=== PATIENT | female | born 1960 | race Caucasian/White ===

== ENCOUNTER 2023-12-21 14:56 | Inpatient (IN) | payer MEDICAID, MEDICARE ==
[~2023-12-21] VITALS: Ht 160 cm; Wt 101.8 kg
[2023-12-21] MEDS ORDERED: IOHEXOL-350 100 ML VIAL IV ONE ×2 (15:12→15:27)
[2023-12-21 15:41] LABS: BASOPHILS # (AUTO) 0.1 K/uL (0.0-0.2); BASOPHILS % (AUTO) 0.9 % (0.0-2.0); HEMATOCRIT 30 % (33-45); HEMOGLOBIN 9.2 g/dL (11.5-14.8); LYMPHOCYTES % (AUTO) 10.2 % (20.0-44.0); MEAN CORPUSCULAR HEMOGLOBIN 30 PG (26.0-33.0); MEAN CORPUSCULAR HGB CONC 31 g/dl (31.0-36.0); MEAN CORPUSCULAR VOLUME 99 fL (82-100); MONOCYTES # (AUTO) 1.2 K/uL (0.1-1.30); MONOCYTES % (AUTO) 11.5 % (2.0-12.0); NEUTROPHILS # (AUTO) 7.9 K/uL (1.8-8.9); NEUTROPHILS % (AUTO) 77.4 % (43.0-81.0); PLATELET COUNT (AUTO) 185 K/uL (150-450); RED BLOOD CELL COUNT(AUTO) 3.05 MIL/uL (4.0-5.2); RED CELL DISTRIBUTION WIDTH 19.9 % (11.5-15.0); WHITE BLOOD COUNT (AUTO) 10.1 K/uL (4.3-11.0)
[2023-12-21 15:54] LABS: CALCIUM, SERUM 8.6 mg/dL (8.5-10.1); CARBON DIOXIDE 33 mmol/L (21-32); CHLORIDE 98 mmol/L (98-107); GLUCOSE 96 mg/dL (74-106); POTASSIUM 5.6 mmol/L (3.5-5.1); SODIUM SERUM 136 mmol/L (136-145)
[2023-12-21 15:56] LABS: UREA NITROGEN, BLOOD 84 mg/dL (7-18)
[2023-12-21 16:01] LABS: ALANINE AMINOTRANSFERASE 930 U/L (12-78); ALBUMIN 2.6 g/dL (3.4-5.0); ALKALINE PHOSPHATASE 111 U/L (46-116); BILIRUBIN,DIRECT 0.4 mg/dL (0.0-0.2); BILIRUBIN,TOTAL 0.7 mg/dL (0.2-1.0); TOTAL PROTEIN, SERUM 7.5 g/dL (6.4-8.2)
[2023-12-21 16:04] LABS: ALCOHOL, BLOOD < 3 mg/dL (0-10)
[2023-12-21 16:10] LABS: NT-PRO BNP > 25000 pg/mL (0-125)
[2023-12-21 16:22] LABS: INR 1.36 (0.91-1.10); PARTIAL THROMBOPLASTIN TIME 21.6 SEC (24.3-34.3); PROTHROMBIN TIME 13.8 SECS (9.2-11.1)
[2023-12-21 16:25] LABS: ASPARTATE AMINOTRANSFERASE 2601 U/L (15-37)
[2023-12-21] MEDS ORDERED: Calcium Gluconate 1GM/10ML 4.65 MEQ in IV NS 0.9% 100 ML IV ONE (16:30)
[2023-12-21] MEDS ORDERED: Calcium Gluconate 0.465 MEQ/ML VIAL IV ONE (16:33)
[2023-12-21] MEDS ORDERED: SODIUM BICARBONATE SYR 50 MEQ/50 ML DISP.SYRIN ONE (16:34)
[2023-12-21] MEDS ORDERED: ASPIRIN 300 MG/SUPP.RECT RC ONE (16:34)
[2023-12-21] MEDS ORDERED: FUROSEMIDE 20 MG/2 ML VIAL ONE (16:35)
[2023-12-21] MEDS: SODIUM BICARBONATE SYR 50 MEQ/50 ML DISP.SYRIN IV ONE (16:55)
[2023-12-21] MEDS: FUROSEMIDE 40 MG/4 ML VIAL IV ONE (16:55)
[2023-12-21] MEDS: IV NS 0.9% 1,000 ML BAG IV ONE (16:55)
[2023-12-21] MEDS: Calcium Gluconate 0.465 MEQ/ML VIAL IV ONE (17:00)
[2023-12-21] MEDS ORDERED: ALBUTEROL FS 2.5 MG/3 ML VIAL.NEB ONE (17:00)
[2023-12-21] MEDS: ASPIRIN 300 MG/SUPP.RECT RC ONE (17:07)
[2023-12-21 17:08] LABS: THYROID STIMULATING HORMONE 4.832 uIU/mL (0.358-3.74)
[2023-12-21 17:09] VITALS: O2SAT 96
[2023-12-21] MEDS: ALBUTEROL FS 2.5 MG/3 ML VIAL.NEB NEB ONE (17:09)
[2023-12-21 17:28] LABS: APPEARANCE,URINE Clear (CLEAR); BILIRUBIN,URINE SMALL (NEGATIVE); BLOOD, URINE Trace-intact Ery/uL (NEGATIVE); COLOR,URINE YELLOW (YELLOW); KETONES,URINE Trace mg/dL (NEGATIVE); LEUKOCYTE ESTERASE ,URINE Negative (NEGATIVE); NITRITE, URINE Negative (NEGATIVE); PH,URINE 5.5 (5.0-8.0); PROTEIN,URINE 100 mg/dl (NEGATIVE); UGLUCOSE Negative (NEGATIVE)
[2023-12-21 17:35] LABS: AMPHETAMINE, URINE NEGATIVE (NEGATIVE); BARBITURATE, URINE NEGATIVE (NEGATIVE); BENZODIAZEPINE, URINE NEGATIVE (NEGATIVE); CANNABINOID, URINE NEGATIVE (NEGATIVE); COCCAINE, URINE NEGATIVE (NEGATIVE); OPIATE, URINE NEGATIVE (NEGATIVE); PHENCYCLIDINE SCREEN,URINE NEGATIVE (NEGATIVE)
[2023-12-21 17:55] LABS: ADD URINE CULTURE NO; BACTERIA,URINE 1+ /HPF (None Seen); MUCUS,URINE Moderate /LPF (None Seen); WBC,URINE 0-2 /HPF (0-3)
[2023-12-21 18:09] VITALS: O2SAT 98
[2023-12-21 20:30] VITALS: O2SAT 98
[2023-12-21] MEDS ORDERED: ONDANSETRON HCL/PF 4 MG/2 ML VIAL IVP PRN (22:00)
[2023-12-21 22:11] LABS: SERUM AMMONIA 62 umol/L (11-32)
[2023-12-21 22:30] LABS: CALCIUM, SERUM 8.9 mg/dL (8.5-10.1); POTASSIUM 5.6 mmol/L (3.5-5.1)
[2023-12-21 22:45] LABS: ACETAMINOPHEN <10 ug/ml (10-30)
[2023-12-21 22:54] LABS: ALANINE AMINOTRANSFERASE 970 U/L (12-78); ALBUMIN 2.2 g/dL (3.4-5.0); ALKALINE PHOSPHATASE 117 U/L (46-116); ASPARTATE AMINOTRANSFERASE > 1000 U/L (15-37); BILIRUBIN,DIRECT 0.3 mg/dL (0.0-0.2); BILIRUBIN,TOTAL 0.5 mg/dL (0.2-1.0); TOTAL PROTEIN, SERUM 7.1 g/dL (6.4-8.2)
[2023-12-21] MEDS: ENOXAPARIN SODIUM 100 MG/ML DISP.SYRIN SQ ONE (23:28)
[2023-12-21] MEDS: LACTULOSE 10 G/15 ML UDC (PYXIS) PO SCH (23:31)
[2023-12-22] VITALS (7 sets, daily range): BP systolic 101–133; BP diastolic 47–74; TEMP 97.1–98.1; O2SAT 96–99
[2023-12-22] MEDS ORDERED: CEFTRIAXONE 1GM BAG (ER ONLY) 50 ML IV ONE (05:11)
[2023-12-22] MEDS: CEFTRIAXONE 1 G in IV D5W 50 ML IV ONE (05:13)
[2023-12-22 06:56] LABS: BASOPHILS % (AUTO) 0.4 % (0.0-2.0); EOSINOPHILS % (AUTO) 0.1 % (0.0-6.0); HEMATOCRIT 28 % (33-45); HEMOGLOBIN 8.9 g/dL (11.5-14.8); LYMPHOCYTES # (AUTO) 1.4 K/uL (0.8-4.8); LYMPHOCYTES % (AUTO) 15.8 % (20.0-44.0); MEAN CORPUSCULAR HEMOGLOBIN 31 PG (26.0-33.0); MEAN CORPUSCULAR HGB CONC 32 g/dl (31.0-36.0); MEAN CORPUSCULAR VOLUME 98 fL (82-100); MONOCYTES # (AUTO) 1.1 K/uL (0.1-1.30); NEUTROPHILS # (AUTO) 6.4 K/uL (1.8-8.9); NEUTROPHILS % (AUTO) 71.7 % (43.0-81.0); PLATELET COUNT (AUTO) 156 K/uL (150-450); RED BLOOD CELL COUNT(AUTO) 2.87 MIL/uL (4.0-5.2); RED CELL DISTRIBUTION WIDTH 20.3 % (11.5-15.0)
[2023-12-22] MEDS ORDERED: FURO40TA5 PO (09:08)
[2023-12-22] MEDS ORDERED: ARIP5TAB10 PO (09:08)
[2023-12-22] MEDS ORDERED: METF-440 PO (09:08)
[2023-12-22] MEDS ORDERED: TRAM50TA2 PO (09:08)
[2023-12-22] MEDS ORDERED: DIVA-78 PO (09:08)
[2023-12-22] MEDS ORDERED: ALBU18HF2 IH (09:08)
[2023-12-22] MEDS ORDERED: ATOR80TA PO (09:08)
[2023-12-22 09:24] LABS: SERUM AMMONIA 87 umol/L (11-32)
[2023-12-22 09:31] LABS: ALANINE AMINOTRANSFERASE 1206 U/L (12-78); ALBUMIN 2.2 g/dL (3.4-5.0); ALKALINE PHOSPHATASE 113 U/L (46-116); ASPARTATE AMINOTRANSFERASE > 1000 U/L (15-37); BILIRUBIN,DIRECT 0.3 mg/dL (0.0-0.2); BILIRUBIN,TOTAL 0.5 mg/dL (0.2-1.0); CALCIUM, SERUM 8.5 mg/dL (8.5-10.1); CARBON DIOXIDE 34 mmol/L (21-32); CHLORIDE 100 mmol/L (98-107); CREATININE 3.1 mg/dL (0.6-1.3); GLUCOSE 87 mg/dL (74-106); MAGNESIUM 2.5 mg/dL (1.8-2.4); POTASSIUM 5.4 mmol/L (3.5-5.1); SODIUM SERUM 140 mmol/L (136-145)
[2023-12-22 09:41] LABS: UREA NITROGEN, BLOOD 88 mg/dL (7-18)
[2023-12-22 09:59] LABS: CHOLESTEROL 101 mg/dL (<200); HDL CHOLESTEROL 31 mg/dL (40-60); LDL 41 mg/dL (0-99); TRIGLYCERIDES 133 mg/dL (30-150)
[2023-12-22] MEDS: SODIUM POLYSTYRENE SULF. PWD 15 GM UDC PO ONE (12:18)
[2023-12-22] MEDS: IV NS 0.9% 1,000 ML IV PRN (15:34)
[2023-12-22 16:59] LABS: APPEARANCE,URINE CLEAR (CLEAR); BILIRUBIN,URINE NEGATIVE (NEGATIVE); BLOOD, URINE 3+ Ery/uL (NEGATIVE); COLOR,URINE YELLOW (YELLOW); KETONES,URINE TRACE mg/dL (NEGATIVE); LEUKOCYTE ESTERASE ,URINE NEGATIVE (NEGATIVE); NITRITE, URINE NEGATIVE (NEGATIVE); PROTEIN,URINE 2+ mg/dl (NEGATIVE); UGLUCOSE NEGATIVE (NEGATIVE)
[2023-12-22 17:12] LABS: ADD URINE CULTURE NO; BACTERIA,URINE None seen /HPF (None Seen); MUCUS,URINE Few /LPF (None Seen); RBC,URINE 21-50 /HPF (0-2); SQUAMOUS EPITHELIAL CELL,UR None Seen /HPF (None Seen); WBC,URINE NONE SEEN /HPF (0-3); YEAST,URINE Rare /HPF (None Seen)
[2023-12-22 17:20] LABS: CREATININE, URINE 63.2 MG/DL (30.0-125.0); URINE TOTAL PROTEIN 132.3 mg/dL (0-11.9)
[2023-12-22 17:45] LABS: EOSINOPHIL,URINE None Seen
[2023-12-22] MEDS: ENOXAPARIN SODIUM 100 MG/ML DISP.SYRIN SQ SCH (20:55)
[2023-12-22] MEDS: ACETAMINOPHEN 325 MG TABLET PO PRN (20:56)
[2023-12-23] VITALS: BP 109/96; TEMP 99.5; O2SAT 95
[2023-12-23 04:00] VITALS: BP 134/71; TEMP 99; O2SAT 98
[2023-12-23 07:06] LABS: BASOPHILS % (AUTO) 0.3 % (0.0-2.0); EOSINOPHILS % (AUTO) 0.3 % (0.0-6.0); HEMATOCRIT 25 % (33-45); LYMPHOCYTES # (AUTO) 1.6 K/uL (0.8-4.8); LYMPHOCYTES % (AUTO) 18.4 % (20.0-44.0); MEAN CORPUSCULAR HEMOGLOBIN 31 PG (26.0-33.0); MEAN CORPUSCULAR HGB CONC 32 g/dl (31.0-36.0); MEAN CORPUSCULAR VOLUME 98 fL (82-100); MONOCYTES # (AUTO) 1.1 K/uL (0.1-1.30); PLATELET COUNT (AUTO) 139 K/uL (150-450); RED BLOOD CELL COUNT(AUTO) 2.59 MIL/uL (4.0-5.2); RED CELL DISTRIBUTION WIDTH 19.9 % (11.5-15.0); WHITE BLOOD COUNT (AUTO) 8.8 K/uL (4.3-11.0)
[2023-12-23 07:54] LABS: ALANINE AMINOTRANSFERASE 1474 U/L (12-78); ALKALINE PHOSPHATASE 109 U/L (46-116); ASPARTATE AMINOTRANSFERASE > 1000 U/L (15-37); BILIRUBIN,TOTAL 0.4 mg/dL (0.2-1.0); CARBON DIOXIDE 34 mmol/L (21-32); CHLORIDE 103 mmol/L (98-107); CREATININE 3.1 mg/dL (0.6-1.3); GLUCOSE 119 mg/dL (74-106); MAGNESIUM 2.3 mg/dL (1.8-2.4); PHOSPHORUS 5.3 mg/dL (2.5-4.9); POTASSIUM 3.4 mmol/L (3.5-5.1); SODIUM SERUM 143 mmol/L (136-145); TOTAL PROTEIN, SERUM 6.5 g/dL (6.4-8.2)
[2023-12-23 08:00] VITALS: BP 113/63; TEMP 98.6; O2SAT 98
[2023-12-23 08:03] LABS: CREATINE KINASE, TOTAL 219 U/L (26-192)
[2023-12-23 08:05] LABS: UREA NITROGEN, BLOOD 84 mg/dL (7-18)
[2023-12-23 08:08] LABS: COMPLEMENT C3, SERUM 110 mg/dL (82-167); COMPLEMENT C4, SERUM 36 mg/dL (12-38)
[2023-12-23] MEDS: CEFTRIAXONE 1 G in IV D5W 50 ML IV SCH (08:12)
[2023-12-23 11:12] LABS: *ANA ANTI-CENTROMERE B AB <0.2 AI (0.0-0.9); *ANA ANTI-DNA(DS) AB, QN 1 IU/mL (0-9); *ANA ANTI-JO-1 <0.2 AI (0.0-0.9); *ANA ANTICHROMATIN ANTIBODY <0.2 AI (0.0-0.9); *ANA RNP ANTIBODIES <0.2 AI (0.0-0.9); *ANA SJOGREN'S ANTI-SS-A <0.2 AI (0.0-0.9); *ANA SJOGREN'S ANTI-SS-B <0.2 AI (0.0-0.9); *ANAANTI-SCLERODERMA-70 AB <0.2 AI (0.0-0.9); *ANASMITH AB <0.2 AI (0.0-0.9)
[2023-12-23] MEDS ORDERED: TRAMADOL HCL 50 MG TABLET PO PRN (11:30)
[2023-12-23 12:00] VITALS: BP 114/70; TEMP 98.2; O2SAT 98
[2023-12-23] MEDS ORDERED: ALBUTEROL FS 2.5 MG/0.5 ML VIAL.NEB IH PRN (12:00)
[2023-12-23] MEDS ORDERED: ALBUTEROL FS 2.5 MG/0.5 ML VIAL.NEB NEB PRN (12:00)
[2023-12-23 16:00] VITALS: BP 130/74; TEMP 98.3; O2SAT 98
[2023-12-23] MEDS: PROSOURCE / PROSTAT (PYXIS) 30 ML UDC PO SCH (16:41)
[2023-12-23 20:00] VITALS: BP 136/83; TEMP 97.3; O2SAT 97
[2023-12-23] MEDS: D5W IV ONE (20:22)
[2023-12-23] MEDS: ACETYLCYSTEINE IV ONE (20:22)
[2023-12-23] MEDS: DIVALPROEX SODIUM 500 MG TABLET.DR PO SCH (21:09)
[2023-12-23] MEDS: D5W IV SCH (21:20)
[2023-12-23] MEDS: ACETYLCYSTEINE IV SCH (21:20)
[2023-12-23] MEDS: ARIPIPRAZOLE 5 MG TABLET PO SCH (21:25)
[2023-12-24] VITALS (7 sets, daily range): BP systolic 125–138; BP diastolic 62–81; TEMP 96.7–99; O2SAT 97–99
[2023-12-24 06:07] LABS: HEPATITIS B SURFACE AB Reactive (.)
[2023-12-24 06:07] LABS: HBSAG SCREEN Negative (Negative); HEPATITIS A AB, IgM Negative (Negative); HEPATITIS B CORE AB, IgM Negative (Negative)
[2023-12-24 09:07] LABS: PTH, INTACT 394 pg/mL (15-65)
[2023-12-24] MEDS: HEPARIN SODIUM, PORCINE 5000 UNITS/1 ML VIAL SQ SCH (10:02)
[2023-12-24 11:54] LABS: CALCIUM, SERUM 8.2 mg/dL (8.5-10.1); CARBON DIOXIDE 30 mmol/L (21-32); CHLORIDE 96 mmol/L (98-107); CREATININE 2.8 mg/dL (0.6-1.3); GLUCOSE 136 mg/dL (74-106); SODIUM SERUM 144 mmol/L (136-145); UREA NITROGEN, BLOOD 77 mg/dL (7-18)
[2023-12-24 12:03] LABS: ALANINE AMINOTRANSFERASE 1108 U/L (12-78); ALBUMIN 1.7 g/dL (3.4-5.0); ALKALINE PHOSPHATASE 88 U/L (46-116); ASPARTATE AMINOTRANSFERASE > 1000 U/L (15-37); BILIRUBIN,TOTAL 0.4 mg/dL (0.2-1.0); TOTAL PROTEIN, SERUM 6.1 g/dL (6.4-8.2)
[2023-12-24] MEDS ORDERED: ACETYLCYSTEINE IV SCH ×2 (16:00→17:00)
[2023-12-24] MEDS ORDERED: D5W IV SCH ×2 (16:00→17:00)
[2023-12-24 16:42] LABS: ALBUMIN 1.7 g/dL (3.4-5.0); BILIRUBIN,DIRECT 0.2 mg/dL (0.0-0.2); BILIRUBIN,TOTAL 0.4 mg/dL (0.2-1.0); TOTAL PROTEIN, SERUM 6.1 g/dL (6.4-8.2)
[2023-12-24] MEDS: ACETYLCYSTEINE IV SCH (17:38)
[2023-12-24] MEDS: D5W IV SCH (17:38)
[2023-12-24] MEDS: POTASSIUM CHLORIDE 20 MEQ TAB.PRT.SR PO ONE (21:13)
[2023-12-25] VITALS (7 sets, daily range): BP systolic 102–146; BP diastolic 66–83; TEMP 98.2–98.5; O2SAT 96–100
[2023-12-25 07:06] LABS: ALPHA-1-ANTITRYPSIN 198 mg/dL (101-187); IMMUNOGLOBULIN G, SERUM 1709 mg/dL (586-1602); IMMUNOGLOBULIN M, SERUM 40 mg/dL (26-217)
[2023-12-25 08:07] LABS: *ANA ANTI-CENTROMERE B AB <0.2 AI (0.0-0.9); *ANA ANTI-DNA(DS) AB, QN 1 IU/mL (0-9); *ANA ANTI-JO-1 <0.2 AI (0.0-0.9); *ANA ANTICHROMATIN ANTIBODY <0.2 AI (0.0-0.9); *ANA RNP ANTIBODIES <0.2 AI (0.0-0.9); *ANA SJOGREN'S ANTI-SS-A <0.2 AI (0.0-0.9); *ANA SJOGREN'S ANTI-SS-B <0.2 AI (0.0-0.9); *ANAANTI-SCLERODERMA-70 AB <0.2 AI (0.0-0.9); *ANASMITH AB <0.2 AI (0.0-0.9)
[2023-12-25 08:49] LABS: BASOPHILS % (AUTO) 0.3 % (0.0-2.0); EOSINOPHILS # (AUTO) 0.1 K/uL (0.0-0.7); EOSINOPHILS % (AUTO) 1.4 % (0.0-6.0); HEMATOCRIT 28 % (33-45); HEMOGLOBIN 8.7 g/dL (11.5-14.8); LYMPHOCYTES # (AUTO) 2.2 K/uL (0.8-4.8); LYMPHOCYTES % (AUTO) 23.4 % (20.0-44.0); MEAN CORPUSCULAR HEMOGLOBIN 31 PG (26.0-33.0); MEAN CORPUSCULAR HGB CONC 31 g/dl (31.0-36.0); MEAN CORPUSCULAR VOLUME 99 fL (82-100); MONOCYTES # (AUTO) 1.2 K/uL (0.1-1.30); MONOCYTES % (AUTO) 12.5 % (2.0-12.0); NEUTROPHILS # (AUTO) 5.9 K/uL (1.8-8.9); NEUTROPHILS % (AUTO) 62.4 % (43.0-81.0); PLATELET COUNT (AUTO) 160 K/uL (150-450); RED CELL DISTRIBUTION WIDTH 20.2 % (11.5-15.0); WHITE BLOOD COUNT (AUTO) 9.4 K/uL (4.3-11.0)
[2023-12-25] MEDS ORDERED: POTASSIUM CHLORIDE 20 MEQ TAB.PRT.SR PO SCH (09:00)
[2023-12-25 09:04] LABS: CALCIUM, SERUM 8.8 mg/dL (8.5-10.1); CREATININE 2.5 mg/dL (0.6-1.3); POTASSIUM 3.3 mmol/L (3.5-5.1)
[2023-12-25] MEDS: POTASSIUM CHLORIDE 20 MEQ POWDER PACKET GT SCH (09:11)
[2023-12-25] MEDS: DIVALPROEX SODIUM 125 MG CAP.SPRINK PO SCH (10:10)
[2023-12-25 12:06] LABS: ALBUMIN 1.6 g/dL (3.4-5.0); BILIRUBIN,DIRECT 0.2 mg/dL (0.0-0.2); BILIRUBIN,TOTAL 0.4 mg/dL (0.2-1.0); TOTAL PROTEIN, SERUM 6.2 g/dL (6.4-8.2)
[2023-12-25] MEDS: ASPIRIN EC 81 MG TABLET.DR PO SCH (17:07)
[2023-12-26] VITALS (9 sets, daily range): BP systolic 116–149; BP diastolic 60–87; TEMP 97.4–98.6; O2SAT 96–100
[2023-12-26 09:48] LABS: ALBUMIN 1.7 g/dL (3.4-5.0); BILIRUBIN,TOTAL 0.3 mg/dL (0.2-1.0); CALCIUM, SERUM 9.3 mg/dL (8.5-10.1); CREATININE 2.3 mg/dL (0.6-1.3); MAGNESIUM 1.8 mg/dL (1.8-2.4); PHOSPHORUS 4.3 mg/dL (2.5-4.9); POTASSIUM 3.9 mmol/L (3.5-5.1); TOTAL PROTEIN, SERUM 6.7 g/dL (6.4-8.2)
[2023-12-26 13:40] LABS: BASOPHILS % (AUTO) 0.4 % (0.0-2.0); EOSINOPHILS % (AUTO) 1.3 % (0.0-6.0); HEMATOCRIT 28 % (33-45); HEMOGLOBIN 8.5 g/dL (11.5-14.8); LYMPHOCYTES % (AUTO) 22.6 % (20.0-44.0); MEAN CORPUSCULAR HEMOGLOBIN 31 PG (26.0-33.0); MEAN CORPUSCULAR HGB CONC 31 g/dl (31.0-36.0); MEAN CORPUSCULAR VOLUME 101 fL (82-100); MONOCYTES % (AUTO) 12.4 % (2.0-12.0); NEUTROPHILS % (AUTO) 63.3 % (43.0-81.0); PLATELET COUNT (AUTO) 168 K/uL (150-450); RED BLOOD CELL COUNT(AUTO) 2.73 MIL/uL (4.0-5.2); RED CELL DISTRIBUTION WIDTH 19.9 % (11.5-15.0); WHITE BLOOD COUNT (AUTO) 9.2 K/uL (4.3-11.0)
[2023-12-26 13:41] LABS: EOSINOPHILS # (AUTO) 0.1 K/uL (0.0-0.7); LYMPHOCYTES # (AUTO) 2.1 K/uL (0.8-4.8); MONOCYTES # (AUTO) 1.1 K/uL (0.1-1.30); NEUTROPHILS # (AUTO) 5.8 K/uL (1.8-8.9)
[2023-12-26 14:30] LABS: NEUTROPHILS % (MANUAL) 66 (42-76)
[2023-12-26 14:31] LABS: ANISOCYTOSIS 1+; EOSINOPHILS % (MANUAL) 1 % (0-4); LYMPHOCYTES % (MANUAL) 20 % (16-48); MONOCYTES % (MANUAL) 10 % (0-11.0); PLATELET ESTIMATE ADEQUATE; REACTIVE LYMPHOCYTES 2 % (0-0); SMUDGE CELLS 1+
[2023-12-26 15:58] LABS: ALBUMIN 1.5 g/dL (3.4-5.0); BILIRUBIN,DIRECT 0.1 mg/dL (0.0-0.2); BILIRUBIN,TOTAL 0.3 mg/dL (0.2-1.0); TOTAL PROTEIN, SERUM 5.7 g/dL (6.4-8.2)
[2023-12-27] VITALS: BP 135/71; TEMP 98; O2SAT 100
[2023-12-27 04:00] VITALS: BP 120/65; TEMP 98.6; O2SAT 100
[2023-12-27 08:00] VITALS: BP 115/60; TEMP 98.3; O2SAT 98
[2023-12-27 12:00] VITALS: BP 136/62; TEMP 98; O2SAT 97
[2023-12-27 16:00] VITALS: BP 138/61; TEMP 98.6; O2SAT 95
[2023-12-27 20:00] VITALS: BP 140/56; TEMP 97.5; O2SAT 94
[2023-12-28] VITALS (7 sets, daily range): BP systolic 100–127; BP diastolic 59–68; TEMP 96.8–98.4; O2SAT 93–97
[2023-12-28 10:49] LABS: BASOPHILS % (AUTO) 0.4 % (0.0-2.0); EOSINOPHILS # (AUTO) 0.2 K/uL (0.0-0.7); EOSINOPHILS % (AUTO) 2.5 % (0.0-6.0); HEMATOCRIT 26 % (33-45); HEMOGLOBIN 7.6 g/dL (11.5-14.8); LYMPHOCYTES # (AUTO) 1.8 K/uL (0.8-4.8); LYMPHOCYTES % (AUTO) 20.5 % (20.0-44.0); MEAN CORPUSCULAR HEMOGLOBIN 31 PG (26.0-33.0); MEAN CORPUSCULAR HGB CONC 30 g/dl (31.0-36.0); MEAN CORPUSCULAR VOLUME 105 fL (82-100); MONOCYTES % (AUTO) 11.6 % (2.0-12.0); NEUTROPHILS # (AUTO) 5.7 K/uL (1.8-8.9); PLATELET COUNT (AUTO) 180 K/uL (150-450); RED BLOOD CELL COUNT(AUTO) 2.47 MIL/uL (4.0-5.2); RED CELL DISTRIBUTION WIDTH 20.7 % (11.5-15.0); WHITE BLOOD COUNT (AUTO) 8.9 K/uL (4.3-11.0)
[2023-12-28 11:02] LABS: ALBUMIN 1.7 g/dL (3.4-5.0); BILIRUBIN,TOTAL 0.2 mg/dL (0.2-1.0); CALCIUM, SERUM 8.9 mg/dL (8.5-10.1); CREATININE 2.2 mg/dL (0.6-1.3); MAGNESIUM 1.9 mg/dL (1.8-2.4); PHOSPHORUS 4.5 mg/dL (2.5-4.9); POTASSIUM 3.5 mmol/L (3.5-5.1); TOTAL PROTEIN, SERUM 6.1 g/dL (6.4-8.2)
[2023-12-29 00:35] VITALS: O2SAT 96
[2023-12-29 05:18] VITALS: BP 117/70; TEMP 97.7; O2SAT 92
[2023-12-29 08:00] VITALS: BP 120/68; TEMP 98.4; O2SAT 92
[2023-12-29] MEDS: Z GUARD REMEDY 4 OZ OINT TP SCH (09:33)
[2023-12-29] MEDS: RIFAXIMIN 550 MG TABLET PO SCH (11:06)
[2023-12-29 12:06] LABS: *SPE A/G RATIO 0.6 (0.7-1.7); *SPE ALBUMIN 2.8 g/dL (2.9-4.4); *SPE ALPHA-1-GLOBULIN 0.4 g/dL (0.0-0.4); *SPE ALPHA-2-GLOBULIN 0.9 g/dL (0.4-1.0); *SPE GLOBULIN, TOTAL 4.4 g/dL (2.2-3.9); *SPE M-SPIKE Not Observed g/dL (Not Observed); *SPE PROTEIN TOTAL 7.2 g/dL (6.0-8.5); *SPEGAMMA GLOBULIN 2.1 g/dL (0.4-1.8)
[2023-12-29 16:00] VITALS: BP 122/71; TEMP 98; O2SAT 92
[2023-12-29 17:19] LABS: BASOPHILS % (AUTO) 0.5 % (0.0-2.0); EOSINOPHILS # (AUTO) 0.2 K/uL (0.0-0.7); EOSINOPHILS % (AUTO) 1.7 % (0.0-6.0); HEMATOCRIT 24 % (33-45); HEMOGLOBIN 7.1 g/dL (11.5-14.8); LYMPHOCYTES # (AUTO) 1.9 K/uL (0.8-4.8); LYMPHOCYTES % (AUTO) 20.5 % (20.0-44.0); MEAN CORPUSCULAR HEMOGLOBIN 31 PG (26.0-33.0); MEAN CORPUSCULAR HGB CONC 29 g/dl (31.0-36.0); MEAN CORPUSCULAR VOLUME 104 fL (82-100); MONOCYTES % (AUTO) 11.2 % (2.0-12.0); NEUTROPHILS % (AUTO) 66.1 % (43.0-81.0); PLATELET COUNT (AUTO) 197 K/uL (150-450); RED BLOOD CELL COUNT(AUTO) 2.34 MIL/uL (4.0-5.2); WHITE BLOOD COUNT (AUTO) 9.1 K/uL (4.3-11.0)
[2023-12-29 17:26] LABS: ALBUMIN 1.7 g/dL (3.4-5.0); BILIRUBIN,TOTAL 0.2 mg/dL (0.2-1.0); CALCIUM, SERUM 8.7 mg/dL (8.5-10.1); CREATININE 2.1 mg/dL (0.6-1.3); PHOSPHORUS 4.5 mg/dL (2.5-4.9); POTASSIUM 3.7 mmol/L (3.5-5.1)
[2023-12-29 20:00] VITALS: BP 116/69; TEMP 98.1; O2SAT 92
[2023-12-29 20:43] VITALS: O2SAT 96
[2023-12-30] VITALS (13 sets, daily range): BP systolic 93–118; BP diastolic 50–74; TEMP 97.2–98.4; O2SAT 95–97
[2023-12-30 11:54] LABS: BASOPHILS % (AUTO) 0.5 % (0.0-2.0); EOSINOPHILS # (AUTO) 0.2 K/uL (0.0-0.7); EOSINOPHILS % (AUTO) 2.1 % (0.0-6.0); HEMATOCRIT 23 % (33-45); LYMPHOCYTES # (AUTO) 1.7 K/uL (0.8-4.8); LYMPHOCYTES % (AUTO) 17.6 % (20.0-44.0); MEAN CORPUSCULAR HEMOGLOBIN 31 PG (26.0-33.0); MEAN CORPUSCULAR HGB CONC 29 g/dl (31.0-36.0); MEAN CORPUSCULAR VOLUME 108 fL (82-100); MONOCYTES # (AUTO) 1.1 K/uL (0.1-1.30); MONOCYTES % (AUTO) 11.2 % (2.0-12.0); NEUTROPHILS # (AUTO) 6.5 K/uL (1.8-8.9); NEUTROPHILS % (AUTO) 68.6 % (43.0-81.0); PLATELET COUNT (AUTO) 192 K/uL (150-450); RED CELL DISTRIBUTION WIDTH 21.2 % (11.5-15.0); WHITE BLOOD COUNT (AUTO) 9.4 K/uL (4.3-11.0)
[2023-12-30 12:12] LABS: HEMOGLOBIN 6.4 g/dL (11.5-14.8)
[2023-12-30 15:19] LABS: BAND % (MANUAL) 2 % (0.0-5.0); LYMPHOCYTES % (MANUAL) 20 % (16-48); MONOCYTES % (MANUAL) 10 % (0-11.0)
[2023-12-30 15:20] LABS: EOSINOPHILS % (MANUAL) 2 % (0-4); NEUTROPHILS % (MANUAL) 66 (42-76)
[2023-12-30 15:21] LABS: ANISOCYTOSIS 1+; HYPOCHROMASIA 1+; OVALOCYTES 1+; PLATELET ESTIMATE ADEQUATE; TARGET CELLS 1+
[2023-12-31 04:29] VITALS: BP 98/60; TEMP 98.8; O2SAT 95
[2023-12-31 08:00] VITALS: BP 109/71; TEMP 97.9; O2SAT 99
[2023-12-31] MEDS: FUROSEMIDE 40 MG/4 ML VIAL IV SCH (09:07)
[2023-12-31] MEDS: Z GUARD REMEDY 4 OZ OINT TP PRN (09:56)
[2023-12-31 14:45] VITALS: O2SAT 99
[2023-12-31 16:00] VITALS: BP 118/61; TEMP 98.2; O2SAT 96
[2024-01-01 04:00] VITALS: BP 118/61; TEMP 98.2; O2SAT 96
[2024-01-01 04:35] VITALS: O2SAT 98
[2024-01-01 08:00] VITALS: BP 97/80; TEMP 98.2; O2SAT 94
[2024-01-01 08:14] LABS: BASOPHILS # (AUTO) 0.1 K/uL (0.0-0.2); BASOPHILS % (AUTO) 0.6 % (0.0-2.0); EOSINOPHILS # (AUTO) 0.1 K/uL (0.0-0.7); EOSINOPHILS % (AUTO) 1.5 % (0.0-6.0); HEMATOCRIT 29 % (33-45); HEMOGLOBIN 8.9 g/dL (11.5-14.8); LYMPHOCYTES # (AUTO) 1.9 K/uL (0.8-4.8); LYMPHOCYTES % (AUTO) 20.2 % (20.0-44.0); MEAN CORPUSCULAR HEMOGLOBIN 31 PG (26.0-33.0); MEAN CORPUSCULAR HGB CONC 31 g/dl (31.0-36.0); MEAN CORPUSCULAR VOLUME 101 fL (82-100); MONOCYTES # (AUTO) 1.1 K/uL (0.1-1.30); MONOCYTES % (AUTO) 12.2 % (2.0-12.0); NEUTROPHILS % (AUTO) 65.5 % (43.0-81.0); PLATELET COUNT (AUTO) 249 K/uL (150-450); RED BLOOD CELL COUNT(AUTO) 2.87 MIL/uL (4.0-5.2); RED CELL DISTRIBUTION WIDTH 21.3 % (11.5-15.0); WHITE BLOOD COUNT (AUTO) 9.2 K/uL (4.3-11.0)
[2024-01-01 08:29] LABS: ALBUMIN 1.9 g/dL (3.4-5.0); BILIRUBIN,TOTAL 0.2 mg/dL (0.2-1.0); CALCIUM, SERUM 8.7 mg/dL (8.5-10.1); CREATININE 2.2 mg/dL (0.6-1.3); MAGNESIUM 1.9 mg/dL (1.8-2.4); PHOSPHORUS 4.6 mg/dL (2.5-4.9); POTASSIUM 3.2 mmol/L (3.5-5.1); TOTAL PROTEIN, SERUM 6.4 g/dL (6.4-8.2)
[2024-01-01 09:48] VITALS: O2SAT 97
[2024-01-01] MEDS: POTASSIUM CHLORIDE 20 MEQ TAB.PRT.SR PO SCH ×2 (10:08→10:33)
[2024-01-01 16:01] VITALS: BP 125/76; TEMP 98; O2SAT 97
[2024-01-01] MEDS: DIVALPROEX SODIUM 250 MG TABLET.DR PO SCH (20:48)
[2024-01-01 23:06] VITALS: BP 116/80; TEMP 98.6; O2SAT 99
[2024-01-02] VITALS (7 sets, daily range): BP systolic 110–154; BP diastolic 63–87; TEMP 96.5–98.5; O2SAT 97–98
[2024-01-02 11:07] LABS: BASOPHILS # (AUTO) 0.1 K/uL (0.0-0.2); BASOPHILS % (AUTO) 0.7 % (0.0-2.0); EOSINOPHILS # (AUTO) 0.1 K/uL (0.0-0.7); EOSINOPHILS % (AUTO) 1.2 % (0.0-6.0); HEMATOCRIT 28 % (33-45); HEMOGLOBIN 8.6 g/dL (11.5-14.8); LYMPHOCYTES # (AUTO) 1.2 K/uL (0.8-4.8); LYMPHOCYTES % (AUTO) 11.8 % (20.0-44.0); MEAN CORPUSCULAR HEMOGLOBIN 32 PG (26.0-33.0); MEAN CORPUSCULAR HGB CONC 30 g/dl (31.0-36.0); MEAN CORPUSCULAR VOLUME 105 fL (82-100); MONOCYTES % (AUTO) 9.4 % (2.0-12.0); NEUTROPHILS # (AUTO) 7.9 K/uL (1.8-8.9); NEUTROPHILS % (AUTO) 76.9 % (43.0-81.0); PLATELET COUNT (AUTO) 159 K/uL (150-450); RED BLOOD CELL COUNT(AUTO) 2.71 MIL/uL (4.0-5.2); WHITE BLOOD COUNT (AUTO) 10.2 K/uL (4.3-11.0)
[2024-01-02 14:30] LABS: CALCIUM, SERUM 8.6 mg/dL (8.5-10.1); POTASSIUM 3.6 mmol/L (3.5-5.1)
[2024-01-02 20:42] LABS: ANISOCYTOSIS 1+; EOSINOPHILS % (MANUAL) 2 % (0-4); LYMPHOCYTES % (MANUAL) 12 % (16-48); MONOCYTES % (MANUAL) 5 % (0-11.0); NEUTROPHILS % (MANUAL) 81 (42-76); PLATELET ESTIMATE ADEQUATE
[2024-01-02 20:43] LABS: OVALOCYTES 1+; TARGET CELLS 1+
[2024-01-03 04:00] VITALS: BP 123/74; TEMP 98.5; O2SAT 98
[2024-01-03] MEDS ORDERED: LACTULOSE 10 G/15 ML UDC (PYXIS) ONE (05:03)
[2024-01-03 05:32] VITALS: O2SAT 97
[2024-01-03 08:00] VITALS: BP 100/57; TEMP 98.3; O2SAT 99
[2024-01-03] MEDS: IV D5W 1,000 ML IV PRN (09:48)
[2024-01-03 10:05] LABS: CREATININE 1.9 mg/dL (0.6-1.3); POTASSIUM 3.4 mmol/L (3.5-5.1)
[2024-01-03 10:05] LABS: BASOPHILS # (AUTO) 0.1 K/uL (0.0-0.2); BASOPHILS % (AUTO) 0.7 % (0.0-2.0); EOSINOPHILS # (AUTO) 0.1 K/uL (0.0-0.7); EOSINOPHILS % (AUTO) 0.9 % (0.0-6.0); HEMATOCRIT 31 % (33-45); HEMOGLOBIN 9.4 g/dL (11.5-14.8); LYMPHOCYTES # (AUTO) 1.9 K/uL (0.8-4.8); LYMPHOCYTES % (AUTO) 19.9 % (20.0-44.0); MEAN CORPUSCULAR HEMOGLOBIN 31 PG (26.0-33.0); MEAN CORPUSCULAR HGB CONC 30 g/dl (31.0-36.0); MEAN CORPUSCULAR VOLUME 104 fL (82-100); MONOCYTES # (AUTO) 0.9 K/uL (0.1-1.30); MONOCYTES % (AUTO) 9.6 % (2.0-12.0); NEUTROPHILS # (AUTO) 6.6 K/uL (1.8-8.9); NEUTROPHILS % (AUTO) 68.9 % (43.0-81.0); PLATELET COUNT (AUTO) 248 K/uL (150-450); RED CELL DISTRIBUTION WIDTH 21.6 % (11.5-15.0); WHITE BLOOD COUNT (AUTO) 9.6 K/uL (4.3-11.0)
[2024-01-03] MEDS ORDERED: POTASSIUM CHLORIDE 10 MEQ TABLET.SA PO ONE (13:00)
[2024-01-03] MEDS: POTASSIUM CL. PREMIX PERIPHER. 50 ML IV SCH (13:03)
[2024-01-03 16:00] VITALS: BP 103/59; TEMP 97.3; O2SAT 100
[2024-01-03 17:37] VITALS: O2SAT 98
[2024-01-03 18:43] LABS: OCCULT BLOOD STOOL NEGATIVE (NEGATIVE)
[2024-01-03 20:00] VITALS: BP 96/60; TEMP 97.3; O2SAT 100
[2024-01-04 01:02] VITALS: O2SAT 96
[2024-01-04 04:00] VITALS: BP 103/58; TEMP 97.7; O2SAT 100
[2024-01-04 08:00] VITALS: BP_SYST 103; BP_SYST 106; BP_DIAS 53; BP_DIAS 56; TEMP 98.4; O2SAT 98
[2024-01-04 10:39] VITALS: O2SAT 96
[2024-01-04 16:00] VITALS: BP 106/67; TEMP 98.4; O2SAT 96
== END 2024-01-04 18:43 ==
LOC: ER 14:58 → TELE1 18:38 → MEDSG1 12-28 09:56
PROVIDERS: ADMIT Nurse Practitioner Acute Care; ATTEND Nurse Practitioner Acute Care
PROC: 05HD33Z Insertion of Infusion Device into Right Cephalic Vein, Percutaneous Approach (ICD-10-PCS; principal; 2023-12-22)
PROC: 30233N1 Transfusion of Nonautologous Red Blood Cells into Peripheral Vein, Percutaneous Approach (ICD-10-PCS; 2023-12-30)
DX: K76.82 Hepatic encephalopathy (principal); N17.0 Acute kidney failure with tubular necrosis; I21.4 Non-ST elevation (NSTEMI) myocardial infarction; G93.41 Metabolic encephalopathy; E44.0 Moderate protein-calorie malnutrition; E72.20 Disorder of urea cycle metabolism, unspecified; E27.8 Other specified disorders of adrenal gland; J18.9 Pneumonia, unspecified organism; R18.8 Other ascites; E88.09 Other disorders of plasma-protein metabolism, not elsewhere classified; E11.22 Type 2 diabetes mellitus with diabetic chronic kidney disease; D64.9 Anemia, unspecified; I13.0 Hypertensive heart and chronic kidney disease with heart failure and stage 1 through stage 4 chronic kidney disease, or unspecified chronic kidney disease; I50.9 Heart failure, unspecified; N39.0 Urinary tract infection, site not specified; Z20.822 Contact with and (suspected) exposure to COVID-19; Z86.73 Personal history of transient ischemic attack (TIA), and cerebral infarction without residual deficits; N18.9 Chronic kidney disease, unspecified; R74.01 Elevation of levels of liver transaminase levels; R56.9 Unspecified convulsions; E87.5 Hyperkalemia; E03.9 Hypothyroidism, unspecified; K59.00 Constipation, unspecified; Z74.01 Bed confinement status; B96.89 Other specified bacterial agents as the cause of diseases classified elsewhere; F03.90 Unspecified dementia, unspecified severity, without behavioral disturbance, psychotic disturbance, mood disturbance, and anxiety; Z79.51 Long term (current) use of inhaled steroids; Z79.84 Long term (current) use of oral hypoglycemic drugs; Z79.899 Other long term (current) drug therapy; K72.10 Chronic hepatic failure without coma; J44.0 Chronic obstructive pulmonary disease with (acute) lower respiratory infection
CPT/HCPCS: 36410; 36415; 70450-TC; 70496-TC; 70498-TC; 71045-TC; 71250-TC; 76700-TC; 80048-TC; 80053-TC; 80061-TC; 80076-TC; 80164-TC; 81001; 82103; 82140-TC; 82272-TC; 82550-TC; 82570-TC; 82784; 82962-TC; 83516; 83735-TC; 83880; 83970; 84100-TC; 84155; 84165; 84300-TC; 84443-TC; 84484-TC; 85025-TC; 85027-TC; 85652-TC; 85730-TC; 86225; 86235; 86706; 86803; 86850-TC; 87040-TC; 87086-TC; 87340; 92526; 92611-TC; 93307-TC; 93976-TC; 94760-TC; 94761-TC; 94762-TC; 94799-TC; 97110-TC; 97530-TC; 97535-TC; A4223; G0378; G0480; J0132; J0610; J0696; J1644; J1650; J1940; J3480; J3490; J7030; J7040; J7050; J7060; J7070; P9016; Q9967

== ENCOUNTER 2024-03-07 08:13 | Inpatient (IN) | payer MEDICAID, MEDICARE ==
[2024-03-07] VITALS (25 sets, daily range): BP systolic 89–150; BP diastolic 32–99; TEMP 97.6–98.5; O2SAT 93–100
[~2024-03-07] VITALS: Ht 167.6 cm; Wt 108.9 kg
[~2024-03-07 08:13] MED LIST: ALBU18HF2 IH; ARIP5TAB10 PO; ATOR80TA PO; DIVA-78 PO; FURO40TA5 PO; METF-440 PO; TRAM50TA2 PO
[2024-03-07] MEDS: IV NS 0.9% 500 ML BAG IV ONE (08:28)
[2024-03-07 08:39] LABS: BASOPHILS # (AUTO) 0.1 K/uL (0.0-0.2); BASOPHILS % (AUTO) 0.7 % (0.0-2.0); EOSINOPHILS % (AUTO) 0.3 % (0.0-6.0); HEMATOCRIT 28 % (33-45); HEMOGLOBIN 8.3 g/dL (11.5-14.8); LYMPHOCYTES # (AUTO) 1.8 K/uL (0.8-4.8); LYMPHOCYTES % (AUTO) 16.9 % (20.0-44.0); MEAN CORPUSCULAR HEMOGLOBIN 33 PG (26.0-33.0); MEAN CORPUSCULAR HGB CONC 29 g/dl (31.0-36.0); MEAN CORPUSCULAR VOLUME 112 fL (82-100); MONOCYTES # (AUTO) 0.9 K/uL (0.1-1.30); MONOCYTES % (AUTO) 8.7 % (2.0-12.0); NEUTROPHILS # (AUTO) 7.7 K/uL (1.8-8.9); NEUTROPHILS % (AUTO) 73.4 % (43.0-81.0); PLATELET COUNT (AUTO) 378 K/uL (150-450); RED BLOOD CELL COUNT(AUTO) 2.53 MIL/uL (4.0-5.2); RED CELL DISTRIBUTION WIDTH 19.5 % (11.5-15.0); WHITE BLOOD COUNT (AUTO) 10.5 K/uL (4.3-11.0)
[2024-03-07 08:41] LABS: APPEARANCE,URINE TURBID (CLEAR); BILIRUBIN,URINE NEGATIVE (NEGATIVE); BLOOD, URINE 3+ Ery/uL (NEGATIVE); COLOR,URINE DARK YELLOW (YELLOW); KETONES,URINE TRACE mg/dL (NEGATIVE); LEUKOCYTE ESTERASE ,URINE 2+ (NEGATIVE); NITRITE, URINE POSITIVE (NEGATIVE); PH,URINE 5.5 (5.0-8.0); PROTEIN,URINE 2+ mg/dl (NEGATIVE); UGLUCOSE NEGATIVE (NEGATIVE)
[2024-03-07 08:47] LABS: CALCIUM, SERUM 9.2 mg/dL (8.5-10.1); CARBON DIOXIDE 37 mmol/L (21-32); CHLORIDE 103 mmol/L (98-107); CREATININE 1.1 mg/dL (0.6-1.3); GLUCOSE 123 mg/dL (74-106); POTASSIUM 5.6 mmol/L (3.5-5.1); SODIUM SERUM 143 mmol/L (136-145); UREA NITROGEN, BLOOD 19 mg/dL (7-18)
[2024-03-07] MEDS ORDERED: BISA10SU11 RC (08:48)
[2024-03-07] MEDS ORDERED: ALBUT2 NEB (08:48)
[2024-03-07] MEDS ORDERED: DIVA125C5 PO (08:48)
[2024-03-07] MEDS ORDERED: CRAN3875 PO (08:48)
[2024-03-07] MEDS ORDERED: NA P133E RC (08:48)
[2024-03-07] MEDS ORDERED: RIFA550T PO (08:48)
[2024-03-07] MEDS ORDERED: LACT20SO4 PO (08:48)
[2024-03-07] MEDS ORDERED: MAGN400O6 PO (08:48)
[2024-03-07] MEDS ORDERED: ACET-868 PO (08:48)
[2024-03-07] MEDS ORDERED: LATA2.5D2 EACHEYE (08:48)
[2024-03-07] MEDS ORDERED: ASPI-1169 PO (08:48)
[2024-03-07] MEDS ORDERED: BLOO-668 IN (08:48)
[2024-03-07] MEDS ORDERED: DOCU100C36 PO (08:48)
[2024-03-07] MEDS ORDERED: MELA3TAB41 PO (08:48)
[2024-03-07] MEDS ORDERED: DEXT15DR23 EACHEYE (08:48)
[2024-03-07 08:49] LABS: ADD URINE CULTURE YES; BACTERIA,URINE Few /HPF (None Seen); INR 1.09 (0.91-1.10); PARTIAL THROMBOPLASTIN TIME 27.8 SEC (24.3-34.3); PROTHROMBIN TIME 11.5 SECS (9.2-11.1); RBC,URINE TOO NUMEROUS TO COUN /HPF (0-2); SQUAMOUS EPITHELIAL CELL,UR Rare /HPF (None Seen)
[2024-03-07 08:50] LABS: WBC,URINE 21-50 /HPF (0-3)
[2024-03-07 08:54] LABS: ALANINE AMINOTRANSFERASE 10 U/L (12-78); ALBUMIN 2.1 g/dL (3.4-5.0); ALKALINE PHOSPHATASE 153 U/L (46-116); ASPARTATE AMINOTRANSFERASE 16 U/L (15-37); BILIRUBIN,DIRECT 0.1 mg/dL (0.0-0.2); BILIRUBIN,TOTAL 0.3 mg/dL (0.2-1.0); TOTAL PROTEIN, SERUM 7.7 g/dL (6.4-8.2)
[2024-03-07] MEDS: FUROSEMIDE 40 MG/4 ML VIAL IV ONE (09:03)
[2024-03-07] MEDS ORDERED: FUROSEMIDE 40 MG/4 ML VIAL ONE (09:03)
[2024-03-07] MEDS ORDERED: PIPERACI/TAZO 3.375GM/D5W 50ML PB IV ONE (09:34)
[2024-03-07] MEDS: PIPERACILLIN /TAZOBACTAM 3.375 G in IV D5W 50 ML IV ONE (09:35)
[2024-03-07] MEDS: VANCOMYCIN 1 GM in IV D5W 250 ML IV ONE (09:46)
[2024-03-07] MEDS: LACTULOSE UDC 200 G in SODIUM CHLORIDE IRRIG SOLUTION 400 ML IR ONE (09:48)
[2024-03-07] MEDS ORDERED: ONDANSETRON HCL/PF 4 MG/2 ML VIAL IVP PRN (10:00)
[2024-03-07] MEDS: ENOXAPARIN SODIUM 40 MG/0.4 ML DISP.SYRIN SQ SCH (10:50)
[2024-03-07] MEDS: RIFAXIMIN 550 MG TABLET PO SCH (11:30)
[2024-03-07] MEDS: DIVALPROEX SODIUM 125 MG CAP.SPRINK PO SCH (11:30)
[2024-03-07] MEDS: FUROSEMIDE 40 MG/4 ML VIAL IV SCH (11:56)
[2024-03-07] MEDS: LACTULOSE 10 G/15 ML UDC (PYXIS) PO SCH (12:00)
[2024-03-07 13:06] LABS: ABG BASE EXCESS 10.6 mmol/L; ABG OXYGEN SATURATION 95.1 % (92.0-98.5); ABG PCO2 116.6 mmHg (35.0-45.0); ABG PH 7.169 (7.350-7.450); ABG PO2 88.2 mmHg (75.0-100.0); ABG TOTAL HEMOGLOBIN 8.7 G/dL (12.0-16.0); AaDO2 211.3 mmHg; COHb 0.8 % (0.5-1.5); MetHb 0.4 % (0.0-1.5); SITE, ABG Right Radial; VENT MODE, BG bipap 24/10 r20 60%
[2024-03-07] MEDS: LATANOPROST EYE DROP 0.005% 2.5 ML BOTTLE EACHEYE SCH (13:14)
[2024-03-07 13:18] LABS: ABG BASE EXCESS 5.1 mmol/L; ABG OXYGEN SATURATION 94.1 % (92.0-98.5); ABG PCO2 100.5 mmHg (35.0-45.0); ABG PH 7.167 (7.350-7.450); ABG PO2 82.1 mmHg (75.0-100.0); ABG TOTAL HEMOGLOBIN 9.3 G/dL (12.0-16.0); COHb 0.8 % (0.5-1.5); MetHb 0.2 % (0.0-1.5); O2Hb 93.2 % (94.0-97.0); SITE, ABG Right Radial
[2024-03-07 13:18] LABS: ABG BASE EXCESS 7.3 mmol/L; ABG OXYGEN SATURATION 92.4 % (92.0-98.5); ABG PCO2 89.4 mmHg (35.0-45.0); ABG PH 7.231 (7.350-7.450); COHb 0.4 % (0.5-1.5); MetHb 0.3 % (0.0-1.5); O2Hb 91.8 % (94.0-97.0); SITE, ABG Right Radial
[2024-03-07] MEDS: CEFTRIAXONE 1 G in IV D5W 50 ML IV SCH (14:41)
[2024-03-07] MEDS ORDERED: LACTULOSE UDC 200 G in SODIUM CHLORIDE IRRIG SOLUTION 400 ML IR SCH (22:30)
[2024-03-08] VITALS (29 sets, daily range): BP systolic 108–146; BP diastolic 58–88; TEMP 97.1–98.4; O2SAT 81–100
[2024-03-08 04:24] LABS: BASOPHILS % (AUTO) 0.4 % (0.0-2.0); EOSINOPHILS # (AUTO) 0.1 K/uL (0.0-0.7); EOSINOPHILS % (AUTO) 1.3 % (0.0-6.0); HEMATOCRIT 24 % (33-45); HEMOGLOBIN 7.2 g/dL (11.5-14.8); LYMPHOCYTES # (AUTO) 1.5 K/uL (0.8-4.8); LYMPHOCYTES % (AUTO) 16.8 % (20.0-44.0); MEAN CORPUSCULAR HEMOGLOBIN 33 PG (26.0-33.0); MEAN CORPUSCULAR HGB CONC 31 g/dl (31.0-36.0); MEAN CORPUSCULAR VOLUME 108 fL (82-100); MONOCYTES # (AUTO) 0.9 K/uL (0.1-1.30); MONOCYTES % (AUTO) 10.5 % (2.0-12.0); NEUTROPHILS # (AUTO) 6.4 K/uL (1.8-8.9); PLATELET COUNT (AUTO) 339 K/uL (150-450); RED BLOOD CELL COUNT(AUTO) 2.19 MIL/uL (4.0-5.2); RED CELL DISTRIBUTION WIDTH 18.2 % (11.5-15.0)
[2024-03-08 05:05] LABS: CALCIUM, SERUM 8.7 mg/dL (8.5-10.1); CREATININE 1.1 mg/dL (0.6-1.3); MAGNESIUM 1.7 mg/dL (1.8-2.4); PHOSPHORUS 2.8 mg/dL (2.5-4.9); POTASSIUM 4.4 mmol/L (3.5-5.1)
[2024-03-08] MEDS: Magnesium 1GM/D5W 100ML PREMIX 100 ML IV SCH (09:36)
[2024-03-08] MEDS: FUROSEMIDE 40 MG/4 ML VIAL IV SCH (09:37)
[2024-03-08 10:08] LABS: IRON, SERUM 22 ug/dl (50-175); TOTAL IRON BINDING CAPACITY 239 ug/dl (250-450)
[2024-03-08 10:27] LABS: FERRITIN 292 ng/mL (8-388)
[2024-03-09] VITALS (26 sets, daily range): BP systolic 102–148; BP diastolic 60–107; TEMP 98.3–99.1; O2SAT 88–99
[2024-03-09 04:18] LABS: BASOPHILS # (AUTO) 0.1 K/uL (0.0-0.2); BASOPHILS % (AUTO) 0.7 % (0.0-2.0); EOSINOPHILS # (AUTO) 0.1 K/uL (0.0-0.7); EOSINOPHILS % (AUTO) 1.4 % (0.0-6.0); HEMATOCRIT 23 % (33-45); HEMOGLOBIN 7.3 g/dL (11.5-14.8); LYMPHOCYTES # (AUTO) 2.4 K/uL (0.8-4.8); LYMPHOCYTES % (AUTO) 25.7 % (20.0-44.0); MEAN CORPUSCULAR HEMOGLOBIN 33 PG (26.0-33.0); MEAN CORPUSCULAR HGB CONC 31 g/dl (31.0-36.0); MEAN CORPUSCULAR VOLUME 105 fL (82-100); MONOCYTES # (AUTO) 1.1 K/uL (0.1-1.30); MONOCYTES % (AUTO) 11.4 % (2.0-12.0); NEUTROPHILS # (AUTO) 5.7 K/uL (1.8-8.9); NEUTROPHILS % (AUTO) 60.8 % (43.0-81.0); PLATELET COUNT (AUTO) 356 K/uL (150-450); RED BLOOD CELL COUNT(AUTO) 2.21 MIL/uL (4.0-5.2); RED CELL DISTRIBUTION WIDTH 18.8 % (11.5-15.0); WHITE BLOOD COUNT (AUTO) 9.3 K/uL (4.3-11.0)
[2024-03-09 04:30] LABS: ALBUMIN 1.9 g/dL (3.4-5.0); BILIRUBIN,TOTAL 0.3 mg/dL (0.2-1.0); MAGNESIUM 1.9 mg/dL (1.8-2.4); PHOSPHORUS 2.6 mg/dL (2.5-4.9); POTASSIUM 3.9 mmol/L (3.5-5.1); TOTAL PROTEIN, SERUM 6.8 g/dL (6.4-8.2)
[2024-03-09 08:38] LABS: ABG BASE EXCESS 14.6 mmol/L; ABG OXYGEN SATURATION 87.1 % (92.0-98.5); ABG PCO2 63.8 mmHg (35.0-45.0); ABG PH 7.425 (7.350-7.450); ABG PO2 56.5 mmHg (75.0-100.0); ABG TOTAL HEMOGLOBIN 8.6 G/dL (12.0-16.0); AaDO2 67.9 mmHg; MetHb 0.2 % (0.0-1.5); O2Hb 86.1 % (94.0-97.0); SITE, ABG Right Radial; VENT MODE, BG NASAL CANNULA
[2024-03-09] MEDS: IPRATROPIUM NEB FS 0.5 MG/2.5 ML AMPUL.NEB NEB SCH (10:00)
[2024-03-09] MEDS: ALBUTEROL HALF STRENGTH 1.25 MG/3 ML VIAL.NEB NEB SCH (10:00)
[2024-03-09] MEDS: SOD FERRIC GLUC 125 MG in IV NS 0.9% 100 ML IV SCH (14:36)
[2024-03-09] MEDS: methylPREDNISolone SOD SUCC 125 MG/2ML VIAL IV SCH (14:36)
[2024-03-10] VITALS (13 sets, daily range): BP systolic 137–158; BP diastolic 72–100; TEMP 97.2–99.1; O2SAT 92–99
[2024-03-10 11:10] LABS: *SPE A/G RATIO 0.6 (0.7-1.7); *SPE ALBUMIN 2.4 g/dL (2.9-4.4); *SPE ALPHA-1-GLOBULIN 0.3 g/dL (0.0-0.4); *SPE ALPHA-2-GLOBULIN 0.6 g/dL (0.4-1.0); *SPE BETA GLOBULIN 1.2 g/dL (0.7-1.3); *SPE GLOBULIN, TOTAL 3.9 g/dL (2.2-3.9); *SPE M-SPIKE Not Observed g/dL (Not Observed); *SPE PROTEIN TOTAL 6.3 g/dL (6.0-8.5); *SPEGAMMA GLOBULIN 1.8 g/dL (0.4-1.8)
[2024-03-10 15:18] LABS: POTASSIUM 4.5 mmol/L (3.5-5.1)
[2024-03-10 15:24] LABS: ALBUMIN 2.1 g/dL (3.4-5.0); BILIRUBIN,TOTAL 0.3 mg/dL (0.2-1.0); MAGNESIUM 1.8 mg/dL (1.8-2.4); TOTAL PROTEIN, SERUM 7.3 g/dL (6.4-8.2)
[2024-03-10] MEDS: ACETAMINOPHEN 325 MG TABLET PO PRN (23:48)
[2024-03-11] VITALS (9 sets, daily range): BP systolic 140–146; BP diastolic 70–94; TEMP 97.7–98.6; O2SAT 97–99
[2024-03-11] MEDS: methylPREDNISolone SOD SUCC 40 MG/ML VIAL IV SCH (08:47)
== END 2024-03-11 18:54 ==
LOC: ER 08:18 → ICU 09:42 → UNDODISIN 18:07 → TELE1 03-09 19:19 → TELE-TD 03-09 19:26
PROVIDERS: ADMIT Nurse Practitioner Acute Care; ATTEND Nurse Practitioner Acute Care
PROC: 5A09357 Assistance with Respiratory Ventilation, Less than 24 Consecutive Hours, Continuous Positive Airway Pressure (ICD-10-PCS; principal; 2024-03-07)
DX: K76.82 Hepatic encephalopathy (principal); G93.41 Metabolic encephalopathy; I50.33 Acute on chronic diastolic (congestive) heart failure; J96.01 Acute respiratory failure with hypoxia; J96.02 Acute respiratory failure with hypercapnia; E44.0 Moderate protein-calorie malnutrition; E72.20 Disorder of urea cycle metabolism, unspecified; N17.9 Acute kidney failure, unspecified; E88.09 Other disorders of plasma-protein metabolism, not elsewhere classified; D68.59 Other primary thrombophilia; Z86.73 Personal history of transient ischemic attack (TIA), and cerebral infarction without residual deficits; Z95.810 Presence of automatic (implantable) cardiac defibrillator; G40.909 Epilepsy, unspecified, not intractable, without status epilepticus; J44.9 Chronic obstructive pulmonary disease, unspecified; Z79.82 Long term (current) use of aspirin; Z79.51 Long term (current) use of inhaled steroids; D64.9 Anemia, unspecified; Z79.899 Other long term (current) drug therapy; N39.0 Urinary tract infection, site not specified; B96.89 Other specified bacterial agents as the cause of diseases classified elsewhere; E03.9 Hypothyroidism, unspecified; Z74.09 Other reduced mobility; E66.2 Morbid (severe) obesity with alveolar hypoventilation; Z68.38 Body mass index [BMI] 38.0-38.9, adult; E87.0 Hyperosmolality and hypernatremia; E11.9 Type 2 diabetes mellitus without complications; K72.90 Hepatic failure, unspecified without coma; E87.5 Hyperkalemia; I27.20 Pulmonary hypertension, unspecified; I25.2 Old myocardial infarction; K06.9 Disorder of gingiva and edentulous alveolar ridge, unspecified
CPT/HCPCS: 36415; 36600; 70450-TC; 71045-TC; 74018; 80048-TC; 80053-TC; 80076-TC; 81001; 82140-TC; 82728-TC; 82803-TC; 82962-TC; 83540-TC; 83605-TC; 83735-TC; 84100-TC; 84155; 84165; 84484-TC; 85025-TC; 85730-TC; 87040-TC; 87081-TC; 87086-TC; 92526; 92611-TC; 93307-TC; 93970-TC; 93971-TC; 94762-TC; 94799-TC; 97110-TC; 97112-TC; 97530-TC; 97535-TC; 99082-TC; A4217; A4223; G0378; J0696; J1650; J1940; J2543; J2916; J2919; J3370; J3475; J7030; J7050; J7060

== ENCOUNTER 2024-04-05 11:58 | Inpatient (IN) | payer MEDICAID, MEDICARE ==
[~2024-04-05] VITALS: Ht 165.1 cm; Wt 102.1 kg
[~2024-04-05 11:58] MED LIST changes: +ACET-868 PO; -ALBU18HF2 IH; +ALBUT2 NEB; +ASPI-1169 PO; -ATOR80TA PO; +BISA10SU11 RC; +BLOO-668 IN; +CRAN3875 PO; +DEXT15DR23 EACHEYE; -DIVA-78 PO; +DIVA125C5 PO; +DOCU100C36 PO; +LACT20SO4 PO; +LATA2.5D2 EACHEYE; +MAGN400O6 PO; +MELA3TAB41 PO; -METF-440 PO; +NA P133E RC; +RIFA550T PO
[2024-04-05 12:34] LABS: BASOPHILS # (AUTO) 0.1 K/uL (0.0-0.2); BASOPHILS % (AUTO) 0.8 % (0.0-2.0); EOSINOPHILS # (AUTO) 0.2 K/uL (0.0-0.7); EOSINOPHILS % (AUTO) 1.8 % (0.0-6.0); HEMATOCRIT 30 % (33-45); HEMOGLOBIN 9.1 g/dL (11.5-14.8); LYMPHOCYTES # (AUTO) 2.9 K/uL (0.8-4.8); LYMPHOCYTES % (AUTO) 30.9 % (20.0-44.0); MEAN CORPUSCULAR HEMOGLOBIN 31 PG (26.0-33.0); MEAN CORPUSCULAR HGB CONC 31 g/dl (31.0-36.0); MEAN CORPUSCULAR VOLUME 102 fL (82-100); MONOCYTES # (AUTO) 0.8 K/uL (0.1-1.30); MONOCYTES % (AUTO) 8.9 % (2.0-12.0); NEUTROPHILS # (AUTO) 5.3 K/uL (1.8-8.9); NEUTROPHILS % (AUTO) 57.6 % (43.0-81.0); PLATELET COUNT (AUTO) 490 K/uL (150-450); RED BLOOD CELL COUNT(AUTO) 2.92 MIL/uL (4.0-5.2); RED CELL DISTRIBUTION WIDTH 18.9 % (11.5-15.0); WHITE BLOOD COUNT (AUTO) 9.3 K/uL (4.3-11.0)
[2024-04-05 12:50] LABS: CARBON DIOXIDE 31 mmol/L (21-32); CHLORIDE 103 mmol/L (98-107); CREATININE 0.9 mg/dL (0.6-1.3); GLUCOSE 125 mg/dL (74-106); POTASSIUM 4.3 mmol/L (3.5-5.1); SODIUM SERUM 136 mmol/L (136-145); UREA NITROGEN, BLOOD 8 mg/dL (7-18)
[2024-04-05] MEDS: IV NS 0.9% 1,000 ML BAG IV ONE (13:00)
[2024-04-05] MEDS ORDERED: IPRA0.2S49 IH (13:46)
[2024-04-05] MEDS ORDERED: ALBU1.25 IH (13:46)
[2024-04-05] MEDS ORDERED: CRAN300T PO (13:46)
[2024-04-05] MEDS ORDERED: POLY15DR40 EACHEYE (13:46)
[2024-04-05 15:30] VITALS: BP 155/65; TEMP 98.7; O2SAT 96
[2024-04-05 16:00] VITALS: BP 155/65; TEMP 98.7; O2SAT 96
[2024-04-05] MEDS ORDERED: Z GUARD REMEDY 4 OZ OINT TP PRN (16:00)
[2024-04-05] MEDS ORDERED: ONDANSETRON HCL/PF 4 MG/2 ML VIAL IVP PRN (16:00)
[2024-04-05] MEDS ORDERED: ACETAMINOPHEN 325 MG TABLET PO PRN (16:00)
[2024-04-05] MEDS: IV NS 0.9% 1,000 ML IV PRN (16:45)
[2024-04-05] MEDS: ENOXAPARIN SODIUM 40 MG/0.4 ML DISP.SYRIN SQ SCH (16:47)
[2024-04-05 18:00] VITALS: BP 155/65; TEMP 98.7; O2SAT 96
[2024-04-05 20:00] VITALS: BP 148/74; TEMP 98.4; O2SAT 95
[2024-04-06] VITALS (8 sets, daily range): BP systolic 118–144; BP diastolic 68–92; TEMP 97.3–98.8; O2SAT 94–99
[2024-04-06 07:16] LABS: CALCIUM, SERUM 8.3 mg/dL (8.5-10.1); CREATININE 0.8 mg/dL (0.6-1.3); MAGNESIUM 2.2 mg/dL (1.8-2.4); PHOSPHORUS 3.7 mg/dL (2.5-4.9); POTASSIUM 4.4 mmol/L (3.5-5.1)
[2024-04-06 08:00] LABS: BASOPHILS % (AUTO) 0.4 % (0.0-2.0); EOSINOPHILS # (AUTO) 0.2 K/uL (0.0-0.7); EOSINOPHILS % (AUTO) 2.7 % (0.0-6.0); HEMATOCRIT 30 % (33-45); HEMOGLOBIN 9.1 g/dL (11.5-14.8); LYMPHOCYTES % (AUTO) 24.5 % (20.0-44.0); MEAN CORPUSCULAR HEMOGLOBIN 32 PG (26.0-33.0); MEAN CORPUSCULAR HGB CONC 30 g/dl (31.0-36.0); MEAN CORPUSCULAR VOLUME 105 fL (82-100); MONOCYTES # (AUTO) 0.9 K/uL (0.1-1.30); MONOCYTES % (AUTO) 10.7 % (2.0-12.0); NEUTROPHILS % (AUTO) 61.7 % (43.0-81.0); PLATELET COUNT (AUTO) 464 K/uL (150-450); RED BLOOD CELL COUNT(AUTO) 2.83 MIL/uL (4.0-5.2); RED CELL DISTRIBUTION WIDTH 18.8 % (11.5-15.0)
[2024-04-06 10:04] LABS: APPEARANCE,URINE CLEAR (CLEAR); BILIRUBIN,URINE NEGATIVE (NEGATIVE); BLOOD, URINE NEGATIVE Ery/uL (NEGATIVE); COLOR,URINE YELLOW (YELLOW); KETONES,URINE NEGATIVE (NEGATIVE); LEUKOCYTE ESTERASE ,URINE TRACE (NEGATIVE); NITRITE, URINE NEGATIVE (NEGATIVE); PROTEIN,URINE NEGATIVE (NEGATIVE); UGLUCOSE NEGATIVE (NEGATIVE); UROBILINOGEN,URINE 0.2 EU/dL (0.2)
[2024-04-06 10:20] LABS: ADD URINE CULTURE NO; BACTERIA,URINE None seen /HPF (None Seen); RBC,URINE 0-2 /HPF (0-2); SQUAMOUS EPITHELIAL CELL,UR Rare /HPF (None Seen); WBC,URINE 0-2 /HPF (0-3)
[2024-04-06] MEDS: OXCARBAZEPINE 150 MG TABLET PO SCH (12:31)
[2024-04-06] MEDS ORDERED: ALBUTEROL FS 2.5 MG/3 ML VIAL.NEB NEB PRN (13:00)
[2024-04-06] MEDS ORDERED: LACTULOSE 10 G/15 ML UDC (PYXIS) PO PRN (13:00)
[2024-04-06] MEDS ORDERED: TRAMADOL HCL 50 MG TABLET PO PRN (13:00)
[2024-04-06 13:51] LABS: ALBUMIN 2.1 g/dL (3.4-5.0); BILIRUBIN,TOTAL 0.2 mg/dL (0.2-1.0); CREATININE 0.8 mg/dL (0.6-1.3); POTASSIUM 4.2 mmol/L (3.5-5.1); TOTAL PROTEIN, SERUM 6.7 g/dL (6.4-8.2)
[2024-04-06] MEDS: RIFAXIMIN 550 MG TABLET PO SCH (16:11)
[2024-04-06] MEDS: ALBUTEROL HALF STRENGTH 1.25 MG/3 ML VIAL.NEB IH SCH (20:03)
[2024-04-06] MEDS: IPRATROPIUM NEB FS 0.5 MG/2.5 ML AMPUL.NEB IH SCH (20:03)
[2024-04-06] MEDS: DIVALPROEX SODIUM 125 MG CAP.SPRINK PO SCH (20:48)
[2024-04-06] MEDS: LATANOPROST EYE DROP 0.005% 2.5 ML BOTTLE EACHEYE SCH (21:00)
[2024-04-07] VITALS (7 sets, daily range): BP systolic 31–133; BP diastolic 59–72; TEMP 97.7–98.5; O2SAT 94–98
[2024-04-07 06:40] LABS: BASOPHILS # (AUTO) 0.1 K/uL (0.0-0.2); BASOPHILS % (AUTO) 0.6 % (0.0-2.0); EOSINOPHILS # (AUTO) 0.2 K/uL (0.0-0.7); EOSINOPHILS % (AUTO) 1.9 % (0.0-6.0); HEMATOCRIT 30 % (33-45); HEMOGLOBIN 9.1 g/dL (11.5-14.8); LYMPHOCYTES # (AUTO) 2.7 K/uL (0.8-4.8); LYMPHOCYTES % (AUTO) 29.8 % (20.0-44.0); MEAN CORPUSCULAR HEMOGLOBIN 32 PG (26.0-33.0); MEAN CORPUSCULAR HGB CONC 31 g/dl (31.0-36.0); MEAN CORPUSCULAR VOLUME 106 fL (82-100); MONOCYTES # (AUTO) 0.8 K/uL (0.1-1.30); MONOCYTES % (AUTO) 9.1 % (2.0-12.0); NEUTROPHILS # (AUTO) 5.3 K/uL (1.8-8.9); NEUTROPHILS % (AUTO) 58.6 % (43.0-81.0); PLATELET COUNT (AUTO) 244 K/uL (150-450); RED BLOOD CELL COUNT(AUTO) 2.83 MIL/uL (4.0-5.2); RED CELL DISTRIBUTION WIDTH 19.1 % (11.5-15.0)
[2024-04-07 07:56] LABS: CALCIUM, SERUM 8.2 mg/dL (8.5-10.1); CREATININE 0.6 mg/dL (0.6-1.3); MAGNESIUM 2.2 mg/dL (1.8-2.4); PHOSPHORUS 3.2 mg/dL (2.5-4.9); POTASSIUM 5.6 mmol/L (3.5-5.1)
[2024-04-07] MEDS: ASPIRIN 81 MG TAB.CHEW PO SCH (09:32)
[2024-04-08 01:03] VITALS: O2SAT 98
[2024-04-08 04:00] VITALS: BP 137/67; TEMP 98.1; O2SAT 98
[2024-04-08 08:00] VITALS: BP 139/73; TEMP 97.9; O2SAT 97
[2024-04-08 08:33] LABS: BASOPHILS # (AUTO) 0.1 K/uL (0.0-0.2); BASOPHILS % (AUTO) 0.6 % (0.0-2.0); EOSINOPHILS # (AUTO) 0.2 K/uL (0.0-0.7); EOSINOPHILS % (AUTO) 2.4 % (0.0-6.0); HEMATOCRIT 32 % (33-45); HEMOGLOBIN 9.5 g/dL (11.5-14.8); LYMPHOCYTES % (AUTO) 34.3 % (20.0-44.0); MEAN CORPUSCULAR HEMOGLOBIN 32 PG (26.0-33.0); MEAN CORPUSCULAR HGB CONC 30 g/dl (31.0-36.0); MEAN CORPUSCULAR VOLUME 107 fL (82-100); MONOCYTES % (AUTO) 11.5 % (2.0-12.0); NEUTROPHILS # (AUTO) 4.5 K/uL (1.8-8.9); NEUTROPHILS % (AUTO) 51.2 % (43.0-81.0); PLATELET COUNT (AUTO) 476 K/uL (150-450); RED BLOOD CELL COUNT(AUTO) 2.99 MIL/uL (4.0-5.2); WHITE BLOOD COUNT (AUTO) 8.8 K/uL (4.3-11.0)
[2024-04-08 09:04] LABS: CALCIUM, SERUM 8.2 mg/dL (8.5-10.1); CREATININE 0.8 mg/dL (0.6-1.3); MAGNESIUM 2.2 mg/dL (1.8-2.4); PHOSPHORUS 3.2 mg/dL (2.5-4.9); POTASSIUM 4.5 mmol/L (3.5-5.1)
[2024-04-08 13:47] VITALS: O2SAT 97
[2024-04-08 16:00] VITALS: BP 139/73; TEMP 97.5; O2SAT 94
== END 2024-04-08 20:05 | DRG 423 ==
LOC: ER 12:04 → TELE1 14:06 → MEDSG1 04-06 14:09
PROVIDERS: ADMIT Nurse Practitioner Acute Care; ATTEND Nurse Practitioner Acute Care
DX: E72.20 Disorder of urea cycle metabolism, unspecified (principal); G93.40 Encephalopathy, unspecified; Z99.81 Dependence on supplemental oxygen; D63.8 Anemia in other chronic diseases classified elsewhere; E11.9 Type 2 diabetes mellitus without complications; G40.909 Epilepsy, unspecified, not intractable, without status epilepticus; Z86.73 Personal history of transient ischemic attack (TIA), and cerebral infarction without residual deficits; F39 Unspecified mood [affective] disorder; Z95.0 Presence of cardiac pacemaker; Z79.82 Long term (current) use of aspirin; Z79.51 Long term (current) use of inhaled steroids; Z79.899 Other long term (current) drug therapy; H40.9 Unspecified glaucoma; J44.9 Chronic obstructive pulmonary disease, unspecified; Z91.199 Patient's noncompliance with other medical treatment and regimen due to unspecified reason; G31.84 Mild cognitive impairment of uncertain or unknown etiology; Z87.448 Personal history of other diseases of urinary system; Z86.39 Personal history of other endocrine, nutritional and metabolic disease
CPT/HCPCS: 36415; 70450-TC; 71045-TC; 80048-TC; 80053-TC; 80061-TC; 80164-TC; 81001; 82140-TC; 83735-TC; 84100-TC; 84132-TC; 84484-TC; 85025-TC; 87081-TC; 87086-TC; 94799-TC; 97110-TC; 97112-TC; A4223; G0378; J1650; J7030

== ENCOUNTER 2024-04-21 20:42 | Inpatient (IN) | payer MEDICARE, MEDICAID ==
[~2024-04-21] VITALS: Ht 160 cm; Wt 96.2 kg
[~2024-04-21 20:42] MED LIST changes: +ALBU1.25 IH; -ARIP5TAB10 PO; +CRAN300T PO; -CRAN3875 PO; -DEXT15DR23 EACHEYE; -DIVA125C5 PO; +IPRA0.2S49 IH; +POLY15DR40 EACHEYE
[2024-04-21 21:55] LABS: BASOPHILS # (AUTO) 0.1 K/uL (0.0-0.2); BASOPHILS % (AUTO) 0.7 % (0.0-2.0); EOSINOPHILS # (AUTO) 0.1 K/uL (0.0-0.7); EOSINOPHILS % (AUTO) 1.5 % (0.0-6.0); HEMATOCRIT 33 % (33-45); HEMOGLOBIN 9.7 g/dL (11.5-14.8); LYMPHOCYTES # (AUTO) 2.6 K/uL (0.8-4.8); LYMPHOCYTES % (AUTO) 26.7 % (20.0-44.0); MEAN CORPUSCULAR HEMOGLOBIN 31 PG (26.0-33.0); MEAN CORPUSCULAR HGB CONC 30 g/dl (31.0-36.0); MEAN CORPUSCULAR VOLUME 104 fL (82-100); MONOCYTES # (AUTO) 0.7 K/uL (0.1-1.30); MONOCYTES % (AUTO) 7.6 % (2.0-12.0); NEUTROPHILS # (AUTO) 6.1 K/uL (1.8-8.9); NEUTROPHILS % (AUTO) 63.5 % (43.0-81.0); PLATELET COUNT (AUTO) 336 K/uL (150-450); RED BLOOD CELL COUNT(AUTO) 3.16 MIL/uL (4.0-5.2); RED CELL DISTRIBUTION WIDTH 18.8 % (11.5-15.0); WHITE BLOOD COUNT (AUTO) 9.7 K/uL (4.3-11.0)
[2024-04-21 22:05] LABS: INR 1.08 (0.91-1.10); PARTIAL THROMBOPLASTIN TIME 24.2 SEC (24.3-34.3); PROTHROMBIN TIME 11.4 SECS (9.2-11.1)
[2024-04-21 22:09] LABS: CALCIUM, SERUM 8.6 mg/dL (8.5-10.1); CARBON DIOXIDE 33 mmol/L (21-32); CHLORIDE 108 mmol/L (98-107); CREATININE 0.9 mg/dL (0.6-1.3); GLUCOSE 135 mg/dL (74-106); POTASSIUM 4.2 mmol/L (3.5-5.1); SODIUM SERUM 145 mmol/L (136-145); UREA NITROGEN, BLOOD 9 mg/dL (7-18)
[2024-04-21 22:24] LABS: ALANINE AMINOTRANSFERASE 7 U/L (12-78); ALBUMIN 2.3 g/dL (3.4-5.0); ALKALINE PHOSPHATASE 150 U/L (46-116); ASPARTATE AMINOTRANSFERASE 11 U/L (15-37); BILIRUBIN,DIRECT 0.2 mg/dL (0.0-0.2); BILIRUBIN,TOTAL 0.3 mg/dL (0.2-1.0); NT-PRO BNP 5331 pg/mL (0-125); TOTAL PROTEIN, SERUM 7.2 g/dL (6.4-8.2)
[2024-04-21] MEDS ORDERED: ALBUTEROL FS 2.5 MG/0.5 ML VIAL.NEB NEB PRN (23:00)
[2024-04-21] MEDS ORDERED: ONDANSETRON HCL/PF 4 MG/2 ML VIAL IVP PRN (23:00)
[2024-04-21] MEDS ORDERED: hydrALAZINE HCL IV 20 MG VIAL IV PRN (23:00)
[2024-04-21] MEDS ORDERED: DEXTROSE 50%-WATER 50 ML DISP.SYRIN IV PRN (23:00)
[2024-04-21] MEDS ORDERED: MORPHINE SULFATE INJ 2 MG/ML DISP.SYRIN IV PRN (23:00)
[2024-04-21] MEDS ORDERED: ACETAMINOPHEN 325 MG TABLET PO PRN (23:00)
[2024-04-21] MEDS ORDERED: FUROSEMIDE 40 MG/4 ML VIAL ONE (23:08)
[2024-04-21] MEDS: FUROSEMIDE 40 MG/4 ML VIAL IV ONE (23:08)
[2024-04-22] VITALS (10 sets, daily range): BP systolic 122–170; BP diastolic 67–102; TEMP 97.5–98.4; O2SAT 96–100
[2024-04-22] MEDS ORDERED: Medication Not On Formulary EA (Lactulose 30 ML) PO SCH
[2024-04-22] MEDS ORDERED: IPRATROPIUM/ALBUTEROL INHALER IH SCH
[2024-04-22] MEDS: ALBUTEROL FS 2.5 MG/0.5 ML VIAL.NEB NEB SCH (01:30)
[2024-04-22] MEDS: IPRATROPIUM NEB FS 0.5 MG/2.5 ML AMPUL.NEB IH SCH (01:30)
[2024-04-22] MEDS: LACTULOSE 10 G/15 ML UDC (PYXIS) PO SCH (02:37)
[2024-04-22] MEDS: BLOOD SUGAR DIAGNOSTIC 1 EACH STRIP IN SCH (06:37)
[2024-04-22] MEDS: INSULIN REGULAR, HUMAN 100 UNIT/ML 3 ML VIAL SQ PRN (06:40)
[2024-04-22] MEDS: POLYETHYLENE GLYCOL 3350 17 GM POWD.PACK PO SCH (08:24)
[2024-04-22] MEDS: ASPIRIN 81 MG TAB.CHEW PO SCH (08:24)
[2024-04-22] MEDS: RIFAXIMIN 550 MG TABLET PO SCH (08:24)
[2024-04-22] MEDS: FUROSEMIDE 20 MG/2 ML VIAL IV SCH ×2 (08:24→16:26)
[2024-04-22] MEDS: DOCUSATE SODIUM LIQ 100 MG/10 ML UDC PO SCH (08:25)
[2024-04-22] MEDS: HEPARIN SODIUM, PORCINE 5000 UNITS/1 ML VIAL SQ SCH (08:27)
[2024-04-22] MEDS ORDERED: DIVA-76 PO (08:47)
[2024-04-23] VITALS (9 sets, daily range): BP systolic 108–135; BP diastolic 51–69; TEMP 97.7–98.1; O2SAT 68–99
[2024-04-23 08:14] LABS: BASOPHILS % (AUTO) 0.4 % (0.0-2.0); EOSINOPHILS # (AUTO) 0.2 K/uL (0.0-0.7); EOSINOPHILS % (AUTO) 1.6 % (0.0-6.0); HEMATOCRIT 35 % (33-45); HEMOGLOBIN 9.9 g/dL (11.5-14.8); LYMPHOCYTES # (AUTO) 2.2 K/uL (0.8-4.8); LYMPHOCYTES % (AUTO) 22.8 % (20.0-44.0); MEAN CORPUSCULAR HEMOGLOBIN 30 PG (26.0-33.0); MEAN CORPUSCULAR HGB CONC 29 g/dl (31.0-36.0); MEAN CORPUSCULAR VOLUME 106 fL (82-100); MONOCYTES # (AUTO) 0.8 K/uL (0.1-1.30); MONOCYTES % (AUTO) 8.3 % (2.0-12.0); NEUTROPHILS # (AUTO) 6.6 K/uL (1.8-8.9); NEUTROPHILS % (AUTO) 66.9 % (43.0-81.0); PLATELET COUNT (AUTO) 388 K/uL (150-450); RED BLOOD CELL COUNT(AUTO) 3.28 MIL/uL (4.0-5.2); WHITE BLOOD COUNT (AUTO) 9.8 K/uL (4.3-11.0)
[2024-04-23 08:18] LABS: CALCIUM, SERUM 8.8 mg/dL (8.5-10.1); CREATININE 1.1 mg/dL (0.6-1.3); POTASSIUM 3.7 mmol/L (3.5-5.1)
[2024-04-23 12:33] LABS: ANISOCYTOSIS 1+; EOSINOPHILS % (MANUAL) 1 % (0-4); HYPOCHROMASIA 2+; LYMPHOCYTES % (MANUAL) 23 % (16-48); MONOCYTES % (MANUAL) 8 % (0-11.0); NEUTROPHILS % (MANUAL) 68 (42-76); PLATELET ESTIMATE ADEQUATE
[2024-04-23 12:34] LABS: STOMATOCYTES 1+
[2024-04-24] VITALS (8 sets, daily range): BP systolic 102–156; BP diastolic 48–86; TEMP 97.5–98.1; O2SAT 91–99
[2024-04-24] MEDS ORDERED: FUROSEMIDE 40 MG/4 ML VIAL IV SCH (09:00)
[2024-04-24] MEDS: POTASSIUM CHLORIDE 20 MEQ TAB.PRT.SR PO SCH (09:32)
[2024-04-24] MEDS: FUROSEMIDE 40 MG/4 ML VIAL IV SCH (13:04)
[2024-04-25 07:23] LABS: BASOPHILS % (AUTO) 0.6 % (0.0-2.0); EOSINOPHILS # (AUTO) 0.2 K/uL (0.0-0.7); EOSINOPHILS % (AUTO) 2.1 % (0.0-6.0); HEMATOCRIT 33 % (33-45); LYMPHOCYTES # (AUTO) 2.4 K/uL (0.8-4.8); LYMPHOCYTES % (AUTO) 30.8 % (20.0-44.0); MEAN CORPUSCULAR HEMOGLOBIN 31 PG (26.0-33.0); MEAN CORPUSCULAR HGB CONC 30 g/dl (31.0-36.0); MEAN CORPUSCULAR VOLUME 104 fL (82-100); MONOCYTES # (AUTO) 0.7 K/uL (0.1-1.30); MONOCYTES % (AUTO) 9.3 % (2.0-12.0); NEUTROPHILS # (AUTO) 4.5 K/uL (1.8-8.9); NEUTROPHILS % (AUTO) 57.2 % (43.0-81.0); PLATELET COUNT (AUTO) 359 K/uL (150-450); RED BLOOD CELL COUNT(AUTO) 3.21 MIL/uL (4.0-5.2); RED CELL DISTRIBUTION WIDTH 18.6 % (11.5-15.0); WHITE BLOOD COUNT (AUTO) 7.9 K/uL (4.3-11.0)
[2024-04-25 07:30] LABS: ALBUMIN 2.3 g/dL (3.4-5.0); BILIRUBIN,TOTAL 0.4 mg/dL (0.2-1.0); CREATININE 0.8 mg/dL (0.6-1.3); MAGNESIUM 2.2 mg/dL (1.8-2.4); PHOSPHORUS 2.7 mg/dL (2.5-4.9); POTASSIUM 4.9 mmol/L (3.5-5.1); TOTAL PROTEIN, SERUM 7.1 g/dL (6.4-8.2)
[2024-04-25 10:13] VITALS: BP 137/70; TEMP 98.8; O2SAT 93
== END 2024-04-25 15:35 | DRG 291 ==
LOC: ER 21:02 → TELE 04-22 00:54 → MED 04-24 10:17
PROVIDERS: ADMIT Internal Medicine; ATTEND Internal Medicine
DX: I11.0 Hypertensive heart disease with heart failure (principal); G93.41 Metabolic encephalopathy; I50.33 Acute on chronic diastolic (congestive) heart failure; J96.21 Acute and chronic respiratory failure with hypoxia; E72.20 Disorder of urea cycle metabolism, unspecified; R60.1 Generalized edema; G40.909 Epilepsy, unspecified, not intractable, without status epilepticus; Z86.73 Personal history of transient ischemic attack (TIA), and cerebral infarction without residual deficits; F39 Unspecified mood [affective] disorder; Z79.899 Other long term (current) drug therapy; Z95.0 Presence of cardiac pacemaker; J44.9 Chronic obstructive pulmonary disease, unspecified; E11.9 Type 2 diabetes mellitus without complications; D50.9 Iron deficiency anemia, unspecified; E87.6 Hypokalemia; Z79.51 Long term (current) use of inhaled steroids; Z79.82 Long term (current) use of aspirin; F29 Unspecified psychosis not due to a substance or known physiological condition; E66.01 Morbid (severe) obesity due to excess calories; Z68.37 Body mass index [BMI] 37.0-37.9, adult; K72.90 Hepatic failure, unspecified without coma
CPT/HCPCS: 36415; 71045-TC; 76700-TC; 80048-TC; 80053-TC; 80076-TC; 82140-TC; 82962-TC; 83735-TC; 83880; 84100-TC; 84484-TC; 85025-TC; 85730-TC; 87081-TC; 94760-TC; 94799-TC; G0378; J1644; J1815; J1940

== ENCOUNTER 2024-07-07 16:21 | Inpatient (IN) | payer MEDICARE, MEDICAID ==
[~2024-07-07] VITALS: Ht 160 cm; Wt 97.5 kg
[~2024-07-07 16:21] MED LIST changes: +DIVA-76 PO
[2024-07-07 16:58] LABS: BASOPHILS # (AUTO) 0.1 K/uL (0.0-0.2); BASOPHILS % (AUTO) 0.9 % (0.0-2.0); HEMATOCRIT 34 % (33-45); HEMOGLOBIN 9.8 g/dL (11.5-14.8); LYMPHOCYTES # (AUTO) 1.2 K/uL (0.8-4.8); MEAN CORPUSCULAR HEMOGLOBIN 31 PG (26.0-33.0); MEAN CORPUSCULAR HGB CONC 29 g/dl (31.0-36.0); MEAN CORPUSCULAR VOLUME 107 fL (82-100); MONOCYTES # (AUTO) 0.8 K/uL (0.1-1.30); MONOCYTES % (AUTO) 9.3 % (2.0-12.0); NEUTROPHILS # (AUTO) 6.2 K/uL (1.8-8.9); NEUTROPHILS % (AUTO) 74.8 % (43.0-81.0); PLATELET COUNT (AUTO) 234 K/uL (150-450); RED BLOOD CELL COUNT(AUTO) 3.19 MIL/uL (4.0-5.2); RED CELL DISTRIBUTION WIDTH 19.1 % (11.5-15.0); WHITE BLOOD COUNT (AUTO) 8.3 K/uL (4.3-11.0)
[2024-07-07 17:08] LABS: CALCIUM, SERUM 8.4 mg/dL (8.5-10.1); CARBON DIOXIDE 37 mmol/L (21-32); CHLORIDE 99 mmol/L (98-107); CREATININE 1.9 mg/dL (0.6-1.3); GLUCOSE 141 mg/dL (74-106); POTASSIUM 5.1 mmol/L (3.5-5.1); SODIUM SERUM 138 mmol/L (136-145); UREA NITROGEN, BLOOD 39 mg/dL (7-18)
[2024-07-07 17:20] LABS: ALANINE AMINOTRANSFERASE 15 U/L (12-78); ALBUMIN 2.9 g/dL (3.4-5.0); ALKALINE PHOSPHATASE 161 U/L (46-116); ASPARTATE AMINOTRANSFERASE 22 U/L (15-37); BILIRUBIN,DIRECT 0.1 mg/dL (0.0-0.2); BILIRUBIN,TOTAL 0.3 mg/dL (0.2-1.0); LIPASE 68 U/L (16-77); NT-PRO BNP 16536 pg/mL (0-125); TOTAL PROTEIN, SERUM 7.8 g/dL (6.4-8.2)
[2024-07-07] MEDS ORDERED: ONDANSETRON HCL/PF 4 MG/2 ML VIAL IVP PRN (18:30)
[2024-07-07] MEDS ORDERED: ZOLPIDEM TARTRATE 5 MG TABLET PO PRN (18:30)
[2024-07-07] MEDS: LACTULOSE UDC 200 G in SODIUM CHLORIDE IRRIG SOLUTION 400 ML IR SCH (19:16)
[2024-07-07 21:53] LABS: BAND % (MANUAL) 2 % (0.0-5.0); LYMPHOCYTES % (MANUAL) 20 % (16-48); MONOCYTES % (MANUAL) 12 % (0-11.0); NEUTROPHILS % (MANUAL) 66 (42-76)
[2024-07-07 21:54] LABS: ANISOCYTOSIS 1+; PLATELET ESTIMATE ADEQUATE; TARGET CELLS 1+; TEAR DROP CELLS 1+
[2024-07-08 00:22] VITALS: BP 104/92; TEMP 99.2; O2SAT 99
[2024-07-08 06:31] LABS: BASOPHILS % (AUTO) 0.3 % (0.0-2.0); EOSINOPHILS % (AUTO) 0.1 % (0.0-6.0); HEMATOCRIT 37 % (33-45); HEMOGLOBIN 10.4 g/dL (11.5-14.8); LYMPHOCYTES # (AUTO) 3.4 K/uL (0.8-4.8); LYMPHOCYTES % (AUTO) 33.2 % (20.0-44.0); MEAN CORPUSCULAR HEMOGLOBIN 30 PG (26.0-33.0); MEAN CORPUSCULAR HGB CONC 28 g/dl (31.0-36.0); MEAN CORPUSCULAR VOLUME 109 fL (82-100); MONOCYTES # (AUTO) 1.2 K/uL (0.1-1.30); NEUTROPHILS # (AUTO) 5.5 K/uL (1.8-8.9); NEUTROPHILS % (AUTO) 54.4 % (43.0-81.0); PLATELET COUNT (AUTO) 249 K/uL (150-450); RED BLOOD CELL COUNT(AUTO) 3.43 MIL/uL (4.0-5.2); RED CELL DISTRIBUTION WIDTH 18.8 % (11.5-15.0); WHITE BLOOD COUNT (AUTO) 10.1 K/uL (4.3-11.0)
[2024-07-08 07:58] LABS: CALCIUM, SERUM 9.4 mg/dL (8.5-10.1); CREATININE 1.8 mg/dL (0.6-1.3); MAGNESIUM 2.8 mg/dL (1.8-2.4); PHOSPHORUS 5.4 mg/dL (2.5-4.9)
[2024-07-08 08:00] VITALS: BP 116/76; TEMP 98.5; O2SAT 92
[2024-07-08] MEDS ORDERED: MULT-619 PO (08:08)
[2024-07-08] MEDS ORDERED: ASCO-352 PO (08:08)
[2024-07-08] MEDS: PANTOPRAZOLE 40 MG VIAL IV SCH (08:12)
[2024-07-08 16:00] VITALS: BP 101/68; TEMP 98.3; O2SAT 97
[2024-07-08 20:00] VITALS: BP 114/66; TEMP 97.2; O2SAT 97
[2024-07-09] VITALS: BP 116/65; TEMP 97.3; O2SAT 95
[2024-07-09 04:00] VITALS: BP 103/49; TEMP 97.5; O2SAT 100
[2024-07-09 08:00] VITALS: BP 100/61; TEMP 98.2; O2SAT 94
[2024-07-09] MEDS ORDERED: DEXTROSE 50%-WATER 50 ML DISP.SYRIN IV PRN (08:00)
[2024-07-09] MEDS ORDERED: BISACODYL SUPP (10 MG) 10 MG/SUPP.RECT SUPP.RECT RC PRN (09:00)
[2024-07-09] MEDS ORDERED: MAGNESIUM HYDROXIDE 30 ML UDC PO PRN (09:00)
[2024-07-09] MEDS ORDERED: NA PHOS,M-B/NA PHOS,DI-BA 1 EA ENEMA RC PRN (09:00)
[2024-07-09] MEDS: DIVALPROEX SODIUM 250 MG TABLET.DR PO SCH (09:09)
[2024-07-09] MEDS: ASPIRIN 81 MG TAB.CHEW PO SCH (09:09)
[2024-07-09] MEDS: DOCUSATE SODIUM 100 MG CAPSULE PO SCH (09:09)
[2024-07-09] MEDS: FUROSEMIDE 40 MG TABLET PO SCH (09:10)
[2024-07-09] MEDS: RIFAXIMIN 550 MG TABLET PO SCH (09:10)
[2024-07-09] MEDS: INSULIN REGULAR, HUMAN 100 UNIT/ML 3 ML VIAL SQ PRN (11:20)
[2024-07-09] MEDS: BLOOD SUGAR DIAGNOSTIC 1 EACH STRIP IN SCH (11:20)
[2024-07-09 16:00] VITALS: BP 145/125; TEMP 97.6; O2SAT 92
[2024-07-09] MEDS: ASCORBIC ACID 500 MG TABLET PO SCH (17:17)
[2024-07-09 18:48] LABS: BASOPHILS % (AUTO) 0.6 % (0.0-2.0); EOSINOPHILS % (AUTO) 0.3 % (0.0-6.0); HEMATOCRIT 36 % (33-45); HEMOGLOBIN 10.3 g/dL (11.5-14.8); LYMPHOCYTES # (AUTO) 1.6 K/uL (0.8-4.8); LYMPHOCYTES % (AUTO) 23.3 % (20.0-44.0); MEAN CORPUSCULAR HEMOGLOBIN 30 PG (26.0-33.0); MEAN CORPUSCULAR HGB CONC 29 g/dl (31.0-36.0); MONOCYTES # (AUTO) 1.1 K/uL (0.1-1.30); MONOCYTES % (AUTO) 15.8 % (2.0-12.0); NEUTROPHILS # (AUTO) 4.2 K/uL (1.8-8.9); PLATELET COUNT (AUTO) 197 K/uL (150-450); RED BLOOD CELL COUNT(AUTO) 3.46 MIL/uL (4.0-5.2); RED CELL DISTRIBUTION WIDTH 18.8 % (11.5-15.0); WHITE BLOOD COUNT (AUTO) 6.9 K/uL (4.3-11.0)
[2024-07-09 18:55] LABS: MEAN CORPUSCULAR VOLUME 105 fL (82-100)
[2024-07-09 19:14] LABS: ALBUMIN 2.9 g/dL (3.4-5.0); BILIRUBIN,TOTAL 0.5 mg/dL (0.2-1.0); CALCIUM, SERUM 8.5 mg/dL (8.5-10.1); CREATININE 1.9 mg/dL (0.6-1.3); MAGNESIUM 2.6 mg/dL (1.8-2.4); PHOSPHORUS 5.4 mg/dL (2.5-4.9); POTASSIUM 5.1 mmol/L (3.5-5.1); TOTAL PROTEIN, SERUM 7.8 g/dL (6.4-8.2)
[2024-07-09 20:00] VITALS: BP 102/81; TEMP 97.3; O2SAT 91
[2024-07-10] VITALS (13 sets, daily range): BP systolic 95–131; BP diastolic 58–104; TEMP 97.3–98.4; O2SAT 90–100
[2024-07-10] MEDS: IPRATROPIUM NEB FS 0.5 MG/2.5 ML AMPUL.NEB IH SCH (01:41)
[2024-07-10] MEDS: PANTOPRAZOLE 40 MG TABLET.DR PO SCH (09:13)
[2024-07-10] MEDS: LACTULOSE 10 G/15 ML UDC (PYXIS) PO SCH (09:27)
[2024-07-10] MEDS: SPIRONOLACTONE 25 MG TABLET PO SCH (11:20)
[2024-07-11] VITALS (14 sets, daily range): BP systolic 111–170; BP diastolic 51–76; TEMP 97.2–99.1; O2SAT 91–100
[2024-07-11] MEDS: LACTULOSE UDC 200 G in SODIUM CHLORIDE IRRIG SOLUTION 400 ML IR SCH (11:49)
[2024-07-12] VITALS (12 sets, daily range): BP systolic 90–122; BP diastolic 47–72; TEMP 97.2–98.4; O2SAT 93–100
[2024-07-12 08:09] LABS: PTH, INTACT 209 pg/mL (15-65)
[2024-07-12 10:09] LABS: *SPE A/G RATIO 0.7 (0.7-1.7); *SPE ALBUMIN 2.9 g/dL (2.9-4.4); *SPE ALPHA-1-GLOBULIN 0.3 g/dL (0.0-0.4); *SPE ALPHA-2-GLOBULIN 0.7 g/dL (0.4-1.0); *SPE BETA GLOBULIN 1.3 g/dL (0.7-1.3); *SPE GLOBULIN, TOTAL 4.3 g/dL (2.2-3.9); *SPE M-SPIKE Not Observed g/dL (Not Observed); *SPE PROTEIN TOTAL 7.2 g/dL (6.0-8.5)
[2024-07-13] VITALS (14 sets, daily range): BP systolic 105–125; BP diastolic 55–80; TEMP 97.7–98.6; O2SAT 90–100
[2024-07-13 12:04] LABS: CALCIUM, SERUM 8.6 mg/dL (8.5-10.1); CREATININE 1.9 mg/dL (0.6-1.3); POTASSIUM 4.5 mmol/L (3.5-5.1)
[2024-07-13 12:29] LABS: BASOPHILS % (AUTO) 0.4 % (0.0-2.0); EOSINOPHILS % (AUTO) 0.5 % (0.0-6.0); HEMATOCRIT 33 % (33-45); HEMOGLOBIN 9.6 g/dL (11.5-14.8); LYMPHOCYTES % (AUTO) 29.4 % (20.0-44.0); MEAN CORPUSCULAR HEMOGLOBIN 31 PG (26.0-33.0); MEAN CORPUSCULAR HGB CONC 29 g/dl (31.0-36.0); MEAN CORPUSCULAR VOLUME 106 fL (82-100); MONOCYTES # (AUTO) 0.9 K/uL (0.1-1.30); MONOCYTES % (AUTO) 13.6 % (2.0-12.0); NEUTROPHILS # (AUTO) 3.9 K/uL (1.8-8.9); NEUTROPHILS % (AUTO) 56.1 % (43.0-81.0); PLATELET COUNT (AUTO) 193 K/uL (150-450); RED BLOOD CELL COUNT(AUTO) 3.13 MIL/uL (4.0-5.2); RED CELL DISTRIBUTION WIDTH 19.1 % (11.5-15.0); WHITE BLOOD COUNT (AUTO) 6.9 K/uL (4.3-11.0)
[2024-07-13 13:11] LABS: BAND % (MANUAL) 1 % (0.0-5.0); LYMPHOCYTES % (MANUAL) 35 % (16-48); MONOCYTES % (MANUAL) 12 % (0-11.0); NEUTROPHILS % (MANUAL) 52 (42-76)
[2024-07-13 13:14] LABS: ANISOCYTOSIS 1+; PLATELET ESTIMATE ADEQUATE
[2024-07-13 13:17] LABS: STOMATOCYTES 1+
[2024-07-14] VITALS (14 sets, daily range): BP systolic 109–130; BP diastolic 72–82; TEMP 97.5–98.8; O2SAT 91–99
[2024-07-14 06:59] LABS: BASOPHILS % (AUTO) 0.3 % (0.0-2.0); EOSINOPHILS # (AUTO) 0.1 K/uL (0.0-0.7); EOSINOPHILS % (AUTO) 1.3 % (0.0-6.0); HEMATOCRIT 34 % (33-45); HEMOGLOBIN 9.7 g/dL (11.5-14.8); LYMPHOCYTES # (AUTO) 2.3 K/uL (0.8-4.8); LYMPHOCYTES % (AUTO) 29.7 % (20.0-44.0); MEAN CORPUSCULAR HEMOGLOBIN 30 PG (26.0-33.0); MEAN CORPUSCULAR HGB CONC 29 g/dl (31.0-36.0); MEAN CORPUSCULAR VOLUME 104 fL (82-100); MONOCYTES # (AUTO) 1.1 K/uL (0.1-1.30); NEUTROPHILS # (AUTO) 4.1 K/uL (1.8-8.9); NEUTROPHILS % (AUTO) 53.7 % (43.0-81.0); PLATELET COUNT (AUTO) 209 K/uL (150-450); RED BLOOD CELL COUNT(AUTO) 3.25 MIL/uL (4.0-5.2); WHITE BLOOD COUNT (AUTO) 7.6 K/uL (4.3-11.0)
[2024-07-14 07:29] LABS: CALCIUM, SERUM 8.6 mg/dL (8.5-10.1); CREATININE 1.8 mg/dL (0.6-1.3); POTASSIUM 4.1 mmol/L (3.5-5.1)
[2024-07-15] VITALS (11 sets, daily range): BP systolic 112–147; BP diastolic 52–69; TEMP 97.7–98.2; O2SAT 92–98
[2024-07-15] MEDS: METOPROLOL TARTRATE INJ 5 MG/5 ML AMPUL IVP ONE (21:13)
[2024-07-16] VITALS (12 sets, daily range): BP systolic 95–156; BP diastolic 55–130; TEMP 97.9–98.9; O2SAT 92–99
[2024-07-16 11:43] LABS: BASOPHILS % (AUTO) 0.4 % (0.0-2.0); EOSINOPHILS # (AUTO) 0.1 K/uL (0.0-0.7); EOSINOPHILS % (AUTO) 1.5 % (0.0-6.0); HEMATOCRIT 36 % (33-45); HEMOGLOBIN 9.8 g/dL (11.5-14.8); LYMPHOCYTES # (AUTO) 2.5 K/uL (0.8-4.8); LYMPHOCYTES % (AUTO) 31.9 % (20.0-44.0); MEAN CORPUSCULAR HEMOGLOBIN 30 PG (26.0-33.0); MEAN CORPUSCULAR HGB CONC 27 g/dl (31.0-36.0); MEAN CORPUSCULAR VOLUME 109 fL (82-100); MONOCYTES # (AUTO) 1.3 K/uL (0.1-1.30); MONOCYTES % (AUTO) 16.3 % (2.0-12.0); NEUTROPHILS # (AUTO) 3.9 K/uL (1.8-8.9); NEUTROPHILS % (AUTO) 49.9 % (43.0-81.0); PLATELET COUNT (AUTO) 224 K/uL (150-450); RED BLOOD CELL COUNT(AUTO) 3.27 MIL/uL (4.0-5.2); RED CELL DISTRIBUTION WIDTH 19.9 % (11.5-15.0); WHITE BLOOD COUNT (AUTO) 7.9 K/uL (4.3-11.0)
[2024-07-16 11:48] LABS: CREATININE 1.2 mg/dL (0.6-1.3); POTASSIUM 2.8 mmol/L (3.5-5.1)
[2024-07-16 11:51] LABS: CALCIUM, SERUM 5.7 mg/dL (8.5-10.1)
[2024-07-16] MEDS: POTASSIUM CHLORIDE 20 MEQ TAB.PRT.SR PO SCH (14:11)
[2024-07-17] VITALS (13 sets, daily range): BP systolic 95–125; BP diastolic 53–69; TEMP 98.1–98.6; O2SAT 90–98
[2024-07-17 06:57] LABS: BASOPHILS % (AUTO) 0.3 % (0.0-2.0); EOSINOPHILS # (AUTO) 0.1 K/uL (0.0-0.7); EOSINOPHILS % (AUTO) 0.9 % (0.0-6.0); HEMATOCRIT 32 % (33-45); HEMOGLOBIN 9.1 g/dL (11.5-14.8); LYMPHOCYTES # (AUTO) 2.2 K/uL (0.8-4.8); LYMPHOCYTES % (AUTO) 27.8 % (20.0-44.0); MEAN CORPUSCULAR HEMOGLOBIN 30 PG (26.0-33.0); MEAN CORPUSCULAR HGB CONC 29 g/dl (31.0-36.0); MEAN CORPUSCULAR VOLUME 106 fL (82-100); MONOCYTES # (AUTO) 1.1 K/uL (0.1-1.30); MONOCYTES % (AUTO) 14.6 % (2.0-12.0); NEUTROPHILS # (AUTO) 4.4 K/uL (1.8-8.9); NEUTROPHILS % (AUTO) 56.4 % (43.0-81.0); PLATELET COUNT (AUTO) 227 K/uL (150-450); RED CELL DISTRIBUTION WIDTH 19.4 % (11.5-15.0); WHITE BLOOD COUNT (AUTO) 7.8 K/uL (4.3-11.0)
[2024-07-17 07:25] LABS: ALBUMIN 2.6 g/dL (3.4-5.0); BILIRUBIN,TOTAL 0.3 mg/dL (0.2-1.0); CALCIUM, SERUM 8.8 mg/dL (8.5-10.1); CREATININE 1.9 mg/dL (0.6-1.3); MAGNESIUM 2.7 mg/dL (1.8-2.4); PHOSPHORUS 3.5 mg/dL (2.5-4.9); POTASSIUM 5.1 mmol/L (3.5-5.1); TOTAL PROTEIN, SERUM 7.3 g/dL (6.4-8.2)
[2024-07-18] VITALS (10 sets, daily range): BP systolic 110; BP diastolic 70; TEMP 98.3; O2SAT 91–99
[2024-07-18 06:46] LABS: BASOPHILS % (AUTO) 0.3 % (0.0-2.0); EOSINOPHILS # (AUTO) 0.1 K/uL (0.0-0.7); EOSINOPHILS % (AUTO) 1.2 % (0.0-6.0); HEMATOCRIT 30 % (33-45); HEMOGLOBIN 8.7 g/dL (11.5-14.8); LYMPHOCYTES # (AUTO) 2.2 K/uL (0.8-4.8); LYMPHOCYTES % (AUTO) 30.6 % (20.0-44.0); MEAN CORPUSCULAR HEMOGLOBIN 31 PG (26.0-33.0); MEAN CORPUSCULAR HGB CONC 29 g/dl (31.0-36.0); MEAN CORPUSCULAR VOLUME 105 fL (82-100); MONOCYTES # (AUTO) 1.4 K/uL (0.1-1.30); MONOCYTES % (AUTO) 18.7 % (2.0-12.0); NEUTROPHILS # (AUTO) 3.5 K/uL (1.8-8.9); NEUTROPHILS % (AUTO) 49.2 % (43.0-81.0); PLATELET COUNT (AUTO) 194 K/uL (150-450); WHITE BLOOD COUNT (AUTO) 7.2 K/uL (4.3-11.0)
[2024-07-18 06:49] LABS: POTASSIUM 4.6 mmol/L (3.5-5.1)
[2024-07-19] VITALS (12 sets, daily range): BP systolic 136–138; BP diastolic 68–110; TEMP 97.5–97.7; O2SAT 92–98
[2024-07-19 06:50] LABS: EOSINOPHILS # (AUTO) 0.1 K/uL (0.0-0.7); HEMOGLOBIN 9.7 g/dL (11.5-14.8); LYMPHOCYTES # (AUTO) 2.7 K/uL (0.8-4.8); MEAN CORPUSCULAR HGB CONC 29 g/dl (31.0-36.0)
[2024-07-19 06:57] LABS: BASOPHILS % (AUTO) 0.5 % (0.0-2.0); EOSINOPHILS % (AUTO) 1.4 % (0.0-6.0); HEMATOCRIT 34 % (33-45); MEAN CORPUSCULAR HEMOGLOBIN 31 PG (26.0-33.0); MEAN CORPUSCULAR VOLUME 107 fL (82-100); MONOCYTES # (AUTO) 1.3 K/uL (0.1-1.30); MONOCYTES % (AUTO) 17.4 % (2.0-12.0); NEUTROPHILS # (AUTO) 3.2 K/uL (1.8-8.9); NEUTROPHILS % (AUTO) 43.7 % (43.0-81.0); PLATELET COUNT (AUTO) 196 K/uL (150-450); RED BLOOD CELL COUNT(AUTO) 3.14 MIL/uL (4.0-5.2); RED CELL DISTRIBUTION WIDTH 19.8 % (11.5-15.0); WHITE BLOOD COUNT (AUTO) 7.3 K/uL (4.3-11.0)
[2024-07-19 07:19] LABS: CALCIUM, SERUM 9.3 mg/dL (8.5-10.1); CREATININE 1.8 mg/dL (0.6-1.3); POTASSIUM 5.4 mmol/L (3.5-5.1)
[2024-07-19] MEDS ORDERED: SODIUM POLYSTYRENE SULFONATE 15 G/60 ML BOTTLE PO ONE (11:30)
[2024-07-19] MEDS: SODIUM POLYSTYRENE SULFONATE 15 G/60 ML BOTTLE PO ONE (12:51)
[2024-07-20] VITALS (11 sets, daily range): BP systolic 107–123; BP diastolic 60–66; TEMP 97.5–98.3; O2SAT 93–100
[2024-07-20] MEDS: ALBUTEROL FS 2.5 MG/3 ML VIAL.NEB NEB PRN (08:25)
[2024-07-21] VITALS (18 sets, daily range): BP systolic 105–152; BP diastolic 46–74; TEMP 97.9–98.3; O2SAT 92–100
[2024-07-21 06:47] LABS: BASOPHILS % (AUTO) 0.3 % (0.0-2.0); EOSINOPHILS # (AUTO) 0.1 K/uL (0.0-0.7); EOSINOPHILS % (AUTO) 1.2 % (0.0-6.0); HEMATOCRIT 33 % (33-45); HEMOGLOBIN 9.2 g/dL (11.5-14.8); LYMPHOCYTES # (AUTO) 2.2 K/uL (0.8-4.8); LYMPHOCYTES % (AUTO) 29.2 % (20.0-44.0); MEAN CORPUSCULAR HEMOGLOBIN 30 PG (26.0-33.0); MEAN CORPUSCULAR HGB CONC 28 g/dl (31.0-36.0); MEAN CORPUSCULAR VOLUME 107 fL (82-100); MONOCYTES # (AUTO) 1.2 K/uL (0.1-1.30); MONOCYTES % (AUTO) 16.3 % (2.0-12.0); NEUTROPHILS # (AUTO) 3.9 K/uL (1.8-8.9); PLATELET COUNT (AUTO) 181 K/uL (150-450); RED BLOOD CELL COUNT(AUTO) 3.05 MIL/uL (4.0-5.2); RED CELL DISTRIBUTION WIDTH 19.8 % (11.5-15.0); WHITE BLOOD COUNT (AUTO) 7.4 K/uL (4.3-11.0)
[2024-07-21 07:19] LABS: ALBUMIN 2.6 g/dL (3.4-5.0); BILIRUBIN,DIRECT 0.2 mg/dL (0.0-0.2); BILIRUBIN,TOTAL 0.3 mg/dL (0.2-1.0); CALCIUM, SERUM 9.2 mg/dL (8.5-10.1); CREATININE 1.7 mg/dL (0.6-1.3); POTASSIUM 4.2 mmol/L (3.5-5.1); TOTAL PROTEIN, SERUM 7.4 g/dL (6.4-8.2)
[2024-07-21] MEDS: THERAHONEY GEL 1.5 OZ TUBE TP SCH (08:50)
[2024-07-22] VITALS (24 sets, daily range): BP systolic 90–137; BP diastolic 50–84; TEMP 97.5–99; O2SAT 93–100
[2024-07-22 04:49] LABS: EOSINOPHILS # (AUTO) 0.1 K/uL (0.0-0.7); EOSINOPHILS % (AUTO) 1.2 % (0.0-6.0); HEMOGLOBIN 7.9 g/dL (11.5-14.8); LYMPHOCYTES # (AUTO) 1.8 K/uL (0.8-4.8); RED CELL DISTRIBUTION WIDTH 19.3 % (11.5-15.0)
[2024-07-22 05:08] LABS: BASOPHILS % (AUTO) 0.7 % (0.0-2.0); CALCIUM, SERUM 9.3 mg/dL (8.5-10.1); CREATININE 1.7 mg/dL (0.6-1.3); HEMATOCRIT 27 % (33-45); LYMPHOCYTES % (AUTO) 28.1 % (20.0-44.0); MEAN CORPUSCULAR HEMOGLOBIN 31 PG (26.0-33.0); MEAN CORPUSCULAR HGB CONC 30 g/dl (31.0-36.0); MEAN CORPUSCULAR VOLUME 104 fL (82-100); NEUTROPHILS # (AUTO) 3.5 K/uL (1.8-8.9); PLATELET COUNT (AUTO) 164 K/uL (150-450); POTASSIUM 3.8 mmol/L (3.5-5.1); RED BLOOD CELL COUNT(AUTO) 2.58 MIL/uL (4.0-5.2)
[2024-07-22 05:15] LABS: WHITE BLOOD COUNT (AUTO) 6.4 K/uL (4.3-11.0)
[2024-07-22 06:06] LABS: ANISOCYTOSIS 2+; EOSINOPHILS % (MANUAL) 1 % (0-4); HYPOCHROMASIA 1+; LYMPHOCYTES % (MANUAL) 32 % (16-48); MONOCYTES % (MANUAL) 14 % (0-11.0); NEUTROPHILS % (MANUAL) 53 (42-76); PLATELET ESTIMATE ADEQUATE; STOMATOCYTES 2+; TARGET CELLS 1+
[2024-07-22] MEDS ORDERED: CYANOCOBALAMIN 1,000 MCG/ML VIAL SQ SCH (09:00)
[2024-07-22] MEDS: CYANOCOBALAMIN 1,000 MCG/ML VIAL IM SCH (09:07)
[2024-07-22] MEDS: FOLIC ACID 1 MG TABLET PO SCH (09:07)
[2024-07-23] VITALS (10 sets, daily range): BP systolic 111–142; BP diastolic 59–80; TEMP 97.3–98.1; O2SAT 95–100
[2024-07-23] MEDS ORDERED: IV D5W 1,000 ML IV PRN (09:30)
[2024-07-23] MEDS ORDERED: LACT10SO58 PO (09:52)
[2024-07-24] VITALS (12 sets, daily range): BP systolic 116–135; BP diastolic 66–79; TEMP 97.3–99.1; O2SAT 91–100
[2024-07-24 07:11] LABS: BASOPHILS % (AUTO) 0.7 % (0.0-2.0); EOSINOPHILS # (AUTO) 0.1 K/uL (0.0-0.7); EOSINOPHILS % (AUTO) 1.9 % (0.0-6.0); HEMATOCRIT 32 % (33-45); HEMOGLOBIN 9.5 g/dL (11.5-14.8); LYMPHOCYTES # (AUTO) 2.7 K/uL (0.8-4.8); LYMPHOCYTES % (AUTO) 37.7 % (20.0-44.0); MEAN CORPUSCULAR HEMOGLOBIN 31 PG (26.0-33.0); MEAN CORPUSCULAR HGB CONC 30 g/dl (31.0-36.0); MEAN CORPUSCULAR VOLUME 104 fL (82-100); MONOCYTES # (AUTO) 0.9 K/uL (0.1-1.30); MONOCYTES % (AUTO) 13.4 % (2.0-12.0); NEUTROPHILS # (AUTO) 3.3 K/uL (1.8-8.9); NEUTROPHILS % (AUTO) 46.3 % (43.0-81.0); PLATELET COUNT (AUTO) 183 K/uL (150-450); RED BLOOD CELL COUNT(AUTO) 3.04 MIL/uL (4.0-5.2); RED CELL DISTRIBUTION WIDTH 19.4 % (11.5-15.0)
[2024-07-24 07:28] LABS: ALBUMIN 2.6 g/dL (3.4-5.0); BILIRUBIN,TOTAL 0.3 mg/dL (0.2-1.0); CALCIUM, SERUM 9.6 mg/dL (8.5-10.1); CREATININE 1.7 mg/dL (0.6-1.3); MAGNESIUM 2.5 mg/dL (1.8-2.4); PHOSPHORUS 2.9 mg/dL (2.5-4.9); POTASSIUM 4.6 mmol/L (3.5-5.1); TOTAL PROTEIN, SERUM 7.3 g/dL (6.4-8.2)
[2024-07-24] MEDS: DIVALPROEX SODIUM 125 MG CAP.SPRINK PO SCH (09:35)
[2024-07-24] MEDS: Z GUARD REMEDY 4 OZ OINT TP PRN (13:18)
[2024-07-25] VITALS (9 sets, daily range): BP systolic 99–132; BP diastolic 56–83; TEMP 97.7–99; O2SAT 93–98
[2024-07-25 15:48] LABS: ABG BASE EXCESS 8.3 mmol/L (-2.0-3.0); ABG OXYGEN SATURATION 88.8 % (94.0-98.0); ABG PCO2 67.4 mmHg (32.0-45.0); ABG PO2 61.2 mmHg (83.0-108.0); ABG TOTAL HEMOGLOBIN 9.2 G/dL (12.0-16.0); COHb 0.9 % (0.5-1.5); MetHb 0.2 % (0.0-1.5); O2Hb 87.8 % (94.0-97.0); SITE, ABG RIGHT RADIAL
[2024-08-04] MEDS ORDERED: CYANOCOBALAMIN 1,000 MCG/ML VIAL IM SCH (09:00)
== END 2024-07-25 17:11 | DRG 441 ==
LOC: ER 16:23 → TELE 17:54 → MED 07-14 11:22 → ICU 07-21 11:24 → TELE1 07-22 14:48
PROVIDERS: ADMIT Internal Medicine; ATTEND Internal Medicine
PROC: 5A09457 Assistance with Respiratory Ventilation, 24-96 Consecutive Hours, Continuous Positive Airway Pressure (ICD-10-PCS; principal; 2024-07-22)
DX: K76.82 Hepatic encephalopathy (principal); G93.41 Metabolic encephalopathy; J96.21 Acute and chronic respiratory failure with hypoxia; I50.33 Acute on chronic diastolic (congestive) heart failure; J96.22 Acute and chronic respiratory failure with hypercapnia; N17.0 Acute kidney failure with tubular necrosis; I13.0 Hypertensive heart and chronic kidney disease with heart failure and stage 1 through stage 4 chronic kidney disease, or unspecified chronic kidney disease; K76.6 Portal hypertension; E87.0 Hyperosmolality and hypernatremia; F03.93 Unspecified dementia, unspecified severity, with mood disturbance; F03.92 Unspecified dementia, unspecified severity, with psychotic disturbance; E72.20 Disorder of urea cycle metabolism, unspecified; E11.9 Type 2 diabetes mellitus without complications; R60.1 Generalized edema; Z86.73 Personal history of transient ischemic attack (TIA), and cerebral infarction without residual deficits; K74.60 Unspecified cirrhosis of liver; N18.9 Chronic kidney disease, unspecified; G40.909 Epilepsy, unspecified, not intractable, without status epilepticus; E11.22 Type 2 diabetes mellitus with diabetic chronic kidney disease; D50.9 Iron deficiency anemia, unspecified; E66.01 Morbid (severe) obesity due to excess calories; Z79.51 Long term (current) use of inhaled steroids; Z79.82 Long term (current) use of aspirin; Z79.899 Other long term (current) drug therapy; I25.10 Atherosclerotic heart disease of native coronary artery without angina pectoris; G47.33 Obstructive sleep apnea (adult) (pediatric); J44.9 Chronic obstructive pulmonary disease, unspecified; M89.8X9 Other specified disorders of bone, unspecified site; Z91.199 Patient's noncompliance with other medical treatment and regimen due to unspecified reason; F29 Unspecified psychosis not due to a substance or known physiological condition; F39 Unspecified mood [affective] disorder; Z68.38 Body mass index [BMI] 38.0-38.9, adult; E27.9 Disorder of adrenal gland, unspecified
CPT/HCPCS: 36415; 36600; 70450-TC; 71045-TC; 76770-TC; 80048-TC; 80053-TC; 80076-TC; 82140-TC; 82550-TC; 82607-TC; 82803-TC; 82962-TC; 83690-TC; 83735-TC; 83880; 83921; 83970; 84100-TC; 84155; 84165; 84484-TC; 85025-TC; 87081-TC; 92526; 92611-TC; 94760-TC; 94761-TC; 94762-TC; 94799-TC; 97110-TC; 97530-TC; A4217; G0378; J1815; J2470; J3420; J3490

== ENCOUNTER 2024-08-17 12:10 | Inpatient (IN) | payer MEDICAID, MEDICARE ==
[~2024-08-17] VITALS: Ht 160 cm; Wt 110.3 kg
[~2024-08-17 12:10] MED LIST changes: +ASCO-352 PO; -BLOO-668 IN; +LACT10SO58 PO; +MULT-619 PO; +POVI1MED TP; +SODI473S9 TP
[2024-08-17] MEDS ORDERED: ZINC220C6 PO (12:47)
[2024-08-17] MEDS ORDERED: NETA2.5D EACHEYE (12:47)
[2024-08-17] MEDS ORDERED: FERR325T23 PO (12:47)
[2024-08-17] MEDS ORDERED: AMIN30LI66 PO (12:47)
[2024-08-17] MEDS ORDERED: ACET325T53 PO (12:47)
[2024-08-17 12:51] LABS: BASOPHILS # (AUTO) 0.1 K/uL (0.0-0.2); BASOPHILS % (AUTO) 0.5 % (0.0-2.0); EOSINOPHILS % (AUTO) 0.1 % (0.0-6.0); HEMATOCRIT 26 % (33-45); HEMOGLOBIN 7.7 g/dL (11.5-14.8); LYMPHOCYTES % (AUTO) 12.9 % (20.0-44.0); MEAN CORPUSCULAR HEMOGLOBIN 32 PG (26.0-33.0); MEAN CORPUSCULAR HGB CONC 30 g/dl (31.0-36.0); MEAN CORPUSCULAR VOLUME 107 fL (82-100); NEUTROPHILS # (AUTO) 11.1 K/uL (1.8-8.9); NEUTROPHILS % (AUTO) 73.5 % (43.0-81.0); PLATELET COUNT (AUTO) 414 K/uL (150-450); RED BLOOD CELL COUNT(AUTO) 2.43 MIL/uL (4.0-5.2); RED CELL DISTRIBUTION WIDTH 19.3 % (11.5-15.0); WHITE BLOOD COUNT (AUTO) 15.1 K/uL (4.3-11.0)
[2024-08-17 12:52] LABS: CALCIUM, SERUM 8.7 mg/dL (8.5-10.1); CARBON DIOXIDE 32 mmol/L (21-32); CHLORIDE 101 mmol/L (98-107); CREATININE 1.7 mg/dL (0.6-1.3); GLUCOSE 157 mg/dL (74-106); POTASSIUM 4.6 mmol/L (3.5-5.1); SODIUM SERUM 140 mmol/L (136-145); UREA NITROGEN, BLOOD 48 mg/dL (7-18)
[2024-08-17 12:57] LABS: INR 1.24 (0.91-1.10); PARTIAL THROMBOPLASTIN TIME 27.6 SEC (24.3-34.3)
[2024-08-17 12:59] LABS: ALANINE AMINOTRANSFERASE 13 U/L (12-78); ALBUMIN 2.4 g/dL (3.4-5.0); ALKALINE PHOSPHATASE 190 U/L (46-116); ASPARTATE AMINOTRANSFERASE 25 U/L (15-37); BILIRUBIN,DIRECT 0.2 mg/dL (0.0-0.2); BILIRUBIN,TOTAL 0.3 mg/dL (0.2-1.0); TOTAL PROTEIN, SERUM 7.7 g/dL (6.4-8.2)
[2024-08-17 13:01] LABS: LACTIC ACID 2.1 mmol/L (0.4-2.0)
[2024-08-17] MEDS: IV NS 0.9% 1,000 ML BAG IV ONE (13:15)
[2024-08-17 14:29] LABS: APPEARANCE,URINE SLIGHTLY CLOUDY (CLEAR); BILIRUBIN,URINE NEGATIVE (NEGATIVE); BLOOD, URINE 1+ Ery/uL (NEGATIVE); COLOR,URINE YELLOW (YELLOW); KETONES,URINE TRACE mg/dL (NEGATIVE); LEUKOCYTE ESTERASE ,URINE 2+ (NEGATIVE); NITRITE, URINE NEGATIVE (NEGATIVE); PH,URINE 7.5 (5.0-8.0); PROTEIN,URINE 2+ mg/dl (NEGATIVE); UGLUCOSE NEGATIVE (NEGATIVE); UROBILINOGEN,URINE 0.2 EU/dL (0.2)
[2024-08-17] MEDS ORDERED: ONDANSETRON HCL/PF 4 MG/2 ML VIAL IVP PRN (14:30)
[2024-08-17] MEDS ORDERED: ZOLPIDEM TARTRATE 5 MG TABLET PO PRN (14:30)
[2024-08-17] MEDS ORDERED: ACETAMINOPHEN 325 MG TABLET PO PRN (14:30)
[2024-08-17] MEDS ORDERED: MAGNESIUM HYDROXIDE 30 ML UDC PO PRN (14:30)
[2024-08-17] MEDS ORDERED: Z GUARD REMEDY 4 OZ OINT TP PRN (14:30)
[2024-08-17] MEDS ORDERED: MAG HYDROX/AL HYDROX/SIMETH 30 ML UDC PO PRN (14:30)
[2024-08-17 15:02] LABS: BACTERIA,URINE Many /HPF (None Seen)
[2024-08-17 15:03] LABS: ADD URINE CULTURE YES
[2024-08-17 15:05] LABS: SQUAMOUS EPITHELIAL CELL,UR Few /HPF (None Seen); TRIPLE PHOSPHATE CRYSTAL,UR Few /HPF (None Seen)
[2024-08-17 16:00] VITALS: BP 116/63; TEMP 97.5; O2SAT 99
[2024-08-17] MEDS: IV D5/ 0.9% NACL 1,000 ML IV PRN (17:32)
[2024-08-17] MEDS ORDERED: DEXTROSE 50%-WATER 50 ML DISP.SYRIN IV PRN (18:00)
[2024-08-17] MEDS: INSULIN REGULAR, HUMAN 100 UNIT/ML 3 ML VIAL SQ PRN (18:22)
[2024-08-17] MEDS: BLOOD SUGAR DIAGNOSTIC 1 EACH STRIP IN SCH (18:22)
[2024-08-17] MEDS: LACTULOSE 10 G/15 ML UDC (PYXIS) PO SCH (18:23)
[2024-08-17] MEDS: CEFEPIME 1 GM in IV D5W 50 ML IV SCH (18:43)
[2024-08-17] MEDS: VANCOMYCIN 1 GM in IV D5W 250ml IV ONE (18:46)
[2024-08-17 20:00] VITALS: BP_SYST 104; BP_SYST 105; BP_DIAS 64; TEMP 97.7; O2SAT 100
[2024-08-17] MEDS: VANCOMYCIN 750 MG in IV D5W 250 ML IV ONE (20:17)
[2024-08-17] MEDS ORDERED: CEFEPIME 2 GM in IV D5W 100 ML IV SCH (21:00)
[2024-08-17] MEDS: LATANOPROST EYE DROP 0.005% 2.5 ML BOTTLE EACHEYE SCH (21:02)
[2024-08-17 21:05] LABS: IRON, SERUM 36 ug/dl (50-175); TOTAL IRON BINDING CAPACITY 257 ug/dl (250-450)
[2024-08-17 21:40] LABS: FERRITIN 2432 ng/mL (8-388)
[2024-08-18 06:06] VITALS: O2SAT 98
[2024-08-18 07:23] LABS: BASOPHILS % (AUTO) 0.2 % (0.0-2.0); EOSINOPHILS # (AUTO) 0.1 K/uL (0.0-0.7); EOSINOPHILS % (AUTO) 0.4 % (0.0-6.0); HEMATOCRIT 30 % (33-45); HEMOGLOBIN 8.6 g/dL (11.5-14.8); LYMPHOCYTES # (AUTO) 1.7 K/uL (0.8-4.8); LYMPHOCYTES % (AUTO) 12.5 % (20.0-44.0); MEAN CORPUSCULAR HEMOGLOBIN 32 PG (26.0-33.0); MEAN CORPUSCULAR HGB CONC 29 g/dl (31.0-36.0); MEAN CORPUSCULAR VOLUME 109 fL (82-100); MONOCYTES # (AUTO) 2.2 K/uL (0.1-1.30); MONOCYTES % (AUTO) 16.1 % (2.0-12.0); NEUTROPHILS # (AUTO) 9.8 K/uL (1.8-8.9); NEUTROPHILS % (AUTO) 70.8 % (43.0-81.0); PLATELET COUNT (AUTO) 411 K/uL (150-450); RED BLOOD CELL COUNT(AUTO) 2.74 MIL/uL (4.0-5.2); RED CELL DISTRIBUTION WIDTH 19.3 % (11.5-15.0); WHITE BLOOD COUNT (AUTO) 13.9 K/uL (4.3-11.0)
[2024-08-18 07:52] LABS: CALCIUM, SERUM 8.6 mg/dL (8.5-10.1); CREATININE 1.6 mg/dL (0.6-1.3); MAGNESIUM 2.3 mg/dL (1.8-2.4); PHOSPHORUS 4.9 mg/dL (2.5-4.9); POTASSIUM 4.7 mmol/L (3.5-5.1)
[2024-08-18] MEDS: RIFAXIMIN 550 MG TABLET PO SCH (09:50)
[2024-08-18] MEDS: DIVALPROEX SODIUM 250 MG TABLET.DR PO SCH (09:50)
[2024-08-18] MEDS: DOCUSATE SODIUM 100 MG CAPSULE PO SCH (09:50)
[2024-08-18] MEDS: ASPIRIN 81 MG TAB.CHEW PO SCH (09:50)
[2024-08-18] MEDS: FUROSEMIDE 40 MG TABLET PO SCH (09:50)
[2024-08-18] MEDS: DIVALPROEX SODIUM 125 MG CAP.SPRINK PO SCH (17:00)
[2024-08-18] MEDS: VANCOMYCIN 1 GM in IV D5W 250ml IV SCH (18:10)
[2024-08-18 20:00] VITALS: BP 115/64; TEMP 97.8; O2SAT 95
[2024-08-19 06:41] LABS: CALCIUM, SERUM 8.4 mg/dL (8.5-10.1); CREATININE 1.7 mg/dL (0.6-1.3); POTASSIUM 4.2 mmol/L (3.5-5.1)
[2024-08-19 07:00] VITALS: BP 103/64; TEMP 97.5; O2SAT 95
[2024-08-19 16:00] VITALS: BP 107/77; TEMP 97.3; O2SAT 94
[2024-08-19] MEDS: METOPROLOL TARTRATE 25 MG TABLET PO ONE (16:18)
[2024-08-19 20:00] VITALS: BP 95/56; TEMP 97.5; O2SAT 95
[2024-08-19 20:10] VITALS: BP 95/56; TEMP 97; O2SAT 93
[2024-08-20] VITALS: BP 102/75; TEMP 97.5; O2SAT 96
[2024-08-20 01:08] VITALS: BP 90/62; TEMP 96.9; O2SAT 96
[2024-08-20 02:07] VITALS: BP 101/67; TEMP 97.5
[2024-08-20 06:52] LABS: CALCIUM, SERUM 8.6 mg/dL (8.5-10.1); CREATININE 2.2 mg/dL (0.6-1.3); POTASSIUM 4.2 mmol/L (3.5-5.1)
[2024-08-20] MEDS: VANCOMYCIN HCL 1.25 GM in IV D5W 250 ML IV SCH ×2 (08:00→20:17)
[2024-08-20] MEDS: DIGOXIN INJ 0.5 MG/2 ML AMPUL IV SCH (10:05)
[2024-08-20] MEDS ORDERED: DIGOXIN INJ 0.5 MG/2 ML AMPUL IV SCH (12:00)
[2024-08-20 20:00] VITALS: BP 109/50; TEMP 98.2; O2SAT 98
[2024-08-21] VITALS (9 sets, daily range): BP systolic 88–100; BP diastolic 34–77; TEMP 97.3–98.1; O2SAT 97–100
[2024-08-21] MEDS: IV LR 1000 ML 1,000 ML IV SCH (12:48)
[2024-08-21 12:52] LABS: BASOPHILS # (AUTO) 0.1 K/uL (0.0-0.2); BASOPHILS % (AUTO) 0.6 % (0.0-2.0); EOSINOPHILS % (AUTO) 0.2 % (0.0-6.0); HEMATOCRIT 26 % (33-45); LYMPHOCYTES # (AUTO) 1.7 K/uL (0.8-4.8); LYMPHOCYTES % (AUTO) 14.1 % (20.0-44.0); MEAN CORPUSCULAR HEMOGLOBIN 31 PG (26.0-33.0); MEAN CORPUSCULAR HGB CONC 27 g/dl (31.0-36.0); MEAN CORPUSCULAR VOLUME 118 fL (82-100); MONOCYTES # (AUTO) 2.5 K/uL (0.1-1.30); MONOCYTES % (AUTO) 20.9 % (2.0-12.0); NEUTROPHILS # (AUTO) 7.7 K/uL (1.8-8.9); NEUTROPHILS % (AUTO) 64.2 % (43.0-81.0); PLATELET COUNT (AUTO) 349 K/uL (150-450); RED BLOOD CELL COUNT(AUTO) 2.17 MIL/uL (4.0-5.2)
[2024-08-21 12:58] LABS: HEMOGLOBIN 6.8 g/dL (11.5-14.8)
[2024-08-21 13:03] LABS: BILIRUBIN,TOTAL 0.2 mg/dL (0.2-1.0); CALCIUM, SERUM 8.7 mg/dL (8.5-10.1); CREATININE 2.6 mg/dL (0.6-1.3); MAGNESIUM 2.3 mg/dL (1.8-2.4); POTASSIUM 4.7 mmol/L (3.5-5.1); TOTAL PROTEIN, SERUM 6.9 g/dL (6.4-8.2)
[2024-08-21 13:31] LABS: ANISOCYTOSIS 1+; BAND % (MANUAL) 2 % (0.0-5.0); BASOPHILS % (MANUAL) 0 % (0.0-2.0); EOSINOPHILS % (MANUAL) 0 % (0-4); HYPOCHROMASIA 1+; LYMPHOCYTES % (MANUAL) 11 % (16-48); MONOCYTES % (MANUAL) 18 % (0-11.0); NEUTROPHILS % (MANUAL) 69 (42-76); PLATELET ESTIMATE ADEQUATE; STOMATOCYTES 1+
[2024-08-22 01:04] VITALS: BP 103/45; TEMP 98
[2024-08-22 05:00] VITALS: BP 103/69; TEMP 97.9; O2SAT 96
[2024-08-22 08:27] VITALS: BP 103/63; TEMP 97.5; O2SAT 92
[2024-08-22] MEDS: VANCOMYCIN 1 GM in IV D5W 250 ML IV SCH (08:39)
[2024-08-22] MEDS: DAKINS QUARTER STRENGTH (0.125%) 480 ML BOTTLE TOP SCH (08:45)
[2024-08-22 12:04] VITALS: BP_SYST 98; TEMP 97.7; O2SAT 90
[2024-08-22 13:37] LABS: ALBUMIN 2.2 g/dL (3.4-5.0); BILIRUBIN,TOTAL 0.3 mg/dL (0.2-1.0); CALCIUM, SERUM 8.6 mg/dL (8.5-10.1); CREATININE 3.1 mg/dL (0.6-1.3); HEMATOCRIT 27 % (33-45); LYMPHOCYTES # (AUTO) 1.3 K/uL (0.8-4.8); MAGNESIUM 2.3 mg/dL (1.8-2.4); MEAN CORPUSCULAR HGB CONC 29 g/dl (31.0-36.0); PHOSPHORUS 6.8 mg/dL (2.5-4.9); RED BLOOD CELL COUNT(AUTO) 2.56 MIL/uL (4.0-5.2); TOTAL PROTEIN, SERUM 7.3 g/dL (6.4-8.2); WHITE BLOOD COUNT (AUTO) 9.2 K/uL (4.3-11.0)
[2024-08-22 13:43] LABS: BASOPHILS % (AUTO) 0.4 % (0.0-2.0); EOSINOPHILS % (AUTO) 0.1 % (0.0-6.0); LYMPHOCYTES % (AUTO) 13.7 % (20.0-44.0); MEAN CORPUSCULAR HEMOGLOBIN 31 PG (26.0-33.0); MEAN CORPUSCULAR VOLUME 107 fL (82-100); MONOCYTES # (AUTO) 1.5 K/uL (0.1-1.30); MONOCYTES % (AUTO) 16.8 % (2.0-12.0); NEUTROPHILS # (AUTO) 6.3 K/uL (1.8-8.9); PLATELET COUNT (AUTO) 310 K/uL (150-450); RED CELL DISTRIBUTION WIDTH 23.9 % (11.5-15.0)
[2024-08-22] MEDS: IV NS 0.9% 1,000 ML BAG IV ONE (13:59)
[2024-08-22] MEDS ORDERED: FUROSEMIDE 100 MG/10 ML VIAL IV ONE (14:30)
[2024-08-22] MEDS: IV LR 500 ML IV ONE (15:19)
[2024-08-22 15:59] VITALS: BP 109/68; TEMP 97.5; O2SAT 90
[2024-08-22 16:32] LABS: ANISOCYTOSIS 3+; BASOPHILS % (MANUAL) 0 % (0.0-2.0); EOSINOPHILS % (MANUAL) 0 % (0-4); LYMPHOCYTES % (MANUAL) 17 % (16-48); MONOCYTES % (MANUAL) 15 % (0-11.0); NEUTROPHILS % (MANUAL) 68 (42-76); PLATELET ESTIMATE ADEQUATE
[2024-08-22 20:25] VITALS: BP 115/71; TEMP 98.4; O2SAT 93
[2024-08-23] VITALS (66 sets, daily range): BP systolic 85–137; BP diastolic 20–96; TEMP 97.5–98.1; O2SAT 91–100
[2024-08-23 05:11] LABS: PTH, INTACT 73 pg/mL (15-65)
[2024-08-23 07:00] LABS: ABG BASE EXCESS -2.3 mmol/L (-2.0-3.0); ABG OXYGEN SATURATION 94.7 % (94.0-98.0); ABG PCO2 117.9 mmHg (32.0-45.0); ABG PH 7.021 (7.350-7.450); ABG PO2 92.2 mmHg (83.0-108.0); ABG TOTAL HEMOGLOBIN 8.8 G/dL (12.0-16.0); COHb 0.9 % (0.5-1.5); MetHb 0.2 % (0.0-1.5); O2Hb 93.7 % (94.0-97.0); SITE, ABG RIGHT RADIAL
[2024-08-23 07:37] LABS: CALCIUM, SERUM 8.5 mg/dL (8.5-10.1); CREATININE 3.2 mg/dL (0.6-1.3); POTASSIUM 5.2 mmol/L (3.5-5.1)
[2024-08-23] MEDS: NOREPINEPHRINE 8 MG in IV D5W 242 ML IV PRN (07:55)
[2024-08-23 08:55] LABS: ABG BASE EXCESS -2.5 mmol/L (-2.0-3.0); ABG OXYGEN SATURATION 87.6 % (94.0-98.0); ABG PCO2 87.5 mmHg (32.0-45.0); ABG PH 7.118 (7.350-7.450); ABG PO2 61.7 mmHg (83.0-108.0); ABG TOTAL HEMOGLOBIN 8.9 G/dL (12.0-16.0); COHb 0.9 % (0.5-1.5); MetHb 0.1 % (0.0-1.5); O2Hb 86.7 % (94.0-97.0); SITE, ABG RIGHT RADIAL
[2024-08-23] MEDS: FUROSEMIDE 100 MG/10 ML VIAL IV ONE (09:13)
[2024-08-23 09:45] LABS: BASOPHILS # (AUTO) 0.1 K/uL (0.0-0.2); BASOPHILS % (AUTO) 0.9 % (0.0-2.0); HEMATOCRIT 28 % (33-45); HEMOGLOBIN 7.9 g/dL (11.5-14.8); LYMPHOCYTES # (AUTO) 1.8 K/uL (0.8-4.8); LYMPHOCYTES % (AUTO) 13.7 % (20.0-44.0); MEAN CORPUSCULAR HEMOGLOBIN 31 PG (26.0-33.0); MEAN CORPUSCULAR HGB CONC 28 g/dl (31.0-36.0); MEAN CORPUSCULAR VOLUME 111 fL (82-100); MONOCYTES # (AUTO) 4.1 K/uL (0.1-1.30); MONOCYTES % (AUTO) 31.1 % (2.0-12.0); NEUTROPHILS # (AUTO) 7.2 K/uL (1.8-8.9); NEUTROPHILS % (AUTO) 54.3 % (43.0-81.0); PLATELET COUNT (AUTO) 292 K/uL (150-450); RED BLOOD CELL COUNT(AUTO) 2.57 MIL/uL (4.0-5.2); RED CELL DISTRIBUTION WIDTH 24.4 % (11.5-15.0); WHITE BLOOD COUNT (AUTO) 13.2 K/uL (4.3-11.0)
[2024-08-23 10:07] LABS: *SPE A/G RATIO 0.6 (0.7-1.7); *SPE ALBUMIN 2.5 g/dL (2.9-4.4); *SPE ALPHA-1-GLOBULIN 0.4 g/dL (0.0-0.4); *SPE ALPHA-2-GLOBULIN 0.6 g/dL (0.4-1.0); *SPE BETA GLOBULIN 1.1 g/dL (0.7-1.3); *SPE GLOBULIN, TOTAL 4.1 g/dL (2.2-3.9); *SPE M-SPIKE Not Observed g/dL (Not Observed); *SPE PROTEIN TOTAL 6.6 g/dL (6.0-8.5)
[2024-08-23] MEDS: IV D5/ 0.9% NACL 1,000 ML IV PRN (11:34)
[2024-08-23 14:46] LABS: ABG BASE EXCESS -1.8 mmol/L (-2.0-3.0); ABG OXYGEN SATURATION 92.2 % (94.0-98.0); ABG PCO2 71.8 mmHg (32.0-45.0); ABG PH 7.192 (7.350-7.450); ABG PO2 71.6 mmHg (83.0-108.0); ABG TOTAL HEMOGLOBIN 8.5 G/dL (12.0-16.0); COHb 1.2 % (0.5-1.5); MetHb 0.1 % (0.0-1.5); SITE, ABG RIGHT RADIAL
[2024-08-23 15:49] LABS: ANISOCYTOSIS 3+; BASOPHILS % (MANUAL) 0 % (0.0-2.0); EOSINOPHILS % (MANUAL) 0 % (0-4); LYMPHOCYTES % (MANUAL) 19 % (16-48); MONOCYTES % (MANUAL) 27 % (0-11.0); NEUTROPHILS % (MANUAL) 54 (42-76); PLATELET ESTIMATE ADEQUATE
[2024-08-23 15:50] LABS: STOMATOCYTES 1+
[2024-08-24] VITALS (100 sets, daily range): BP systolic 73–142; BP diastolic 35–111; TEMP 97.1–98; O2SAT 91–100
[2024-08-24 05:37] LABS: ALBUMIN 2.1 g/dL (3.4-5.0); BASOPHILS % (AUTO) 0.3 % (0.0-2.0); BILIRUBIN,TOTAL 0.5 mg/dL (0.2-1.0); CALCIUM, SERUM 7.9 mg/dL (8.5-10.1); CREATININE 1.9 mg/dL (0.6-1.3); EOSINOPHILS % (AUTO) 0.3 % (0.0-6.0); HEMATOCRIT 25 % (33-45); HEMOGLOBIN 7.7 g/dL (11.5-14.8); LYMPHOCYTES # (AUTO) 0.9 K/uL (0.8-4.8); LYMPHOCYTES % (AUTO) 8.6 % (20.0-44.0); MAGNESIUM 1.9 mg/dL (1.8-2.4); MEAN CORPUSCULAR HEMOGLOBIN 32 PG (26.0-33.0); MEAN CORPUSCULAR HGB CONC 32 g/dl (31.0-36.0); MEAN CORPUSCULAR VOLUME 101 fL (82-100); MONOCYTES # (AUTO) 2.1 K/uL (0.1-1.30); MONOCYTES % (AUTO) 19.6 % (2.0-12.0); NEUTROPHILS # (AUTO) 7.5 K/uL (1.8-8.9); NEUTROPHILS % (AUTO) 71.2 % (43.0-81.0); PHOSPHORUS 3.4 mg/dL (2.5-4.9); PLATELET COUNT (AUTO) 332 K/uL (150-450); POTASSIUM 3.5 mmol/L (3.5-5.1); RED BLOOD CELL COUNT(AUTO) 2.42 MIL/uL (4.0-5.2); TOTAL PROTEIN, SERUM 6.6 g/dL (6.4-8.2); WHITE BLOOD COUNT (AUTO) 10.5 K/uL (4.3-11.0)
[2024-08-24 09:08] LABS: ABG BASE EXCESS 3.2 mmol/L (-2.0-3.0); ABG OXYGEN SATURATION 96.1 % (94.0-98.0); ABG PCO2 50.8 mmHg (32.0-45.0); ABG PH 7.374 (7.350-7.450); ABG PO2 79.9 mmHg (83.0-108.0); ABG TOTAL HEMOGLOBIN 8.6 G/dL (12.0-16.0); COHb 1.4 % (0.5-1.5); MetHb 0.2 % (0.0-1.5); O2Hb 94.6 % (94.0-97.0); SITE, ABG RIGHT RADIAL
[2024-08-24 10:13] LABS: EOSINOPHILS % (MANUAL) 1 % (0-4); LYMPHOCYTES % (MANUAL) 6 % (16-48); MONOCYTES % (MANUAL) 17 % (0-11.0)
[2024-08-24 10:14] LABS: ANISOCYTOSIS 1+; NEUTROPHILS % (MANUAL) 76 (42-76); PLATELET ESTIMATE ADEQUATE
[2024-08-24 10:22] LABS: STOMATOCYTES 1+
[2024-08-25] VITALS (55 sets, daily range): BP systolic 89–134; BP diastolic 44–89; TEMP 97.5–98.2; O2SAT 91–99
[2024-08-25 04:34] LABS: BASOPHILS % (AUTO) 0.3 % (0.0-2.0); EOSINOPHILS % (AUTO) 0.5 % (0.0-6.0); HEMATOCRIT 24 % (33-45); HEMOGLOBIN 7.3 g/dL (11.5-14.8); LYMPHOCYTES # (AUTO) 1.3 K/uL (0.8-4.8); LYMPHOCYTES % (AUTO) 14.6 % (20.0-44.0); MEAN CORPUSCULAR HEMOGLOBIN 31 PG (26.0-33.0); MEAN CORPUSCULAR HGB CONC 30 g/dl (31.0-36.0); MEAN CORPUSCULAR VOLUME 103 fL (82-100); MONOCYTES # (AUTO) 1.8 K/uL (0.1-1.30); MONOCYTES % (AUTO) 20.2 % (2.0-12.0); NEUTROPHILS # (AUTO) 5.8 K/uL (1.8-8.9); NEUTROPHILS % (AUTO) 64.4 % (43.0-81.0); PLATELET COUNT (AUTO) 292 K/uL (150-450); RED BLOOD CELL COUNT(AUTO) 2.32 MIL/uL (4.0-5.2); RED CELL DISTRIBUTION WIDTH 22.1 % (11.5-15.0)
[2024-08-25 04:44] LABS: ALBUMIN 1.8 g/dL (3.4-5.0); BILIRUBIN,TOTAL 0.3 mg/dL (0.2-1.0); CREATININE 2.2 mg/dL (0.6-1.3); MAGNESIUM 1.9 mg/dL (1.8-2.4); PHOSPHORUS 4.2 mg/dL (2.5-4.9); POTASSIUM 3.5 mmol/L (3.5-5.1); TOTAL PROTEIN, SERUM 5.8 g/dL (6.4-8.2)
[2024-08-25 06:06] LABS: HEPATITIS B SURFACE AB Reactive (.)
[2024-08-25 06:06] LABS: HEPATITIS B CORE AB, IgM Negative (Negative); HEPATITIS B CORE AB, TOTAL Positive (Negative)
[2024-08-25] MEDS: LACTULOSE 10 G/15 ML UDC (PYXIS) PO SCH (11:00)
[2024-08-25 13:16] LABS: PLATELET ESTIMATE ADEQUATE
[2024-08-25 13:17] LABS: ANISOCYTOSIS 2+
[2024-08-25 13:22] LABS: EOSINOPHILS % (MANUAL) 1 % (0-4); LYMPHOCYTES % (MANUAL) 13 % (16-48); MONOCYTES % (MANUAL) 15 % (0-11.0)
[2024-08-25 13:23] LABS: NEUTROPHILS % (MANUAL) 71 (42-76); TARGET CELLS 1+
[2024-08-25] MEDS ORDERED: MAGNESIUM HYDROXIDE 30 ML UDC GT PRN (14:20)
[2024-08-25] MEDS ORDERED: MAG HYDROX/AL HYDROX/SIMETH 30 ML UDC GT PRN (14:20)
[2024-08-25] MEDS ORDERED: PHARMACY TO CHANGE PO MEDS TO GT/NG XX PRN (14:30)
[2024-08-25] MEDS ORDERED: ACETAMINOPHEN 650 MG/20.3 ML UDC GT PRN (14:30)
[2024-08-25] MEDS: ALBUMIN 25% 25 GM in PREMIX 1 EA IV PRN (17:13)
[2024-08-25] MEDS: NEPRO 1,000 ML BOTTLE GT PRN (18:36)
[2024-08-25] MEDS: LACTULOSE 10 G/15 ML UDC (PYXIS) GT SCH (18:39)
[2024-08-25] MEDS: RIFAXIMIN 550 MG TABLET GT SCH (18:39)
[2024-08-26] VITALS (14 sets, daily range): BP systolic 109–136; BP diastolic 51–69; TEMP 97.5–98.3; O2SAT 92–100
[2024-08-26 06:55] LABS: BASOPHILS % (AUTO) 0.4 % (0.0-2.0); EOSINOPHILS # (AUTO) 0.1 K/uL (0.0-0.7); EOSINOPHILS % (AUTO) 0.8 % (0.0-6.0); HEMATOCRIT 26 % (33-45); HEMOGLOBIN 7.9 g/dL (11.5-14.8); LYMPHOCYTES % (AUTO) 20.8 % (20.0-44.0); MEAN CORPUSCULAR HEMOGLOBIN 32 PG (26.0-33.0); MEAN CORPUSCULAR HGB CONC 30 g/dl (31.0-36.0); MEAN CORPUSCULAR VOLUME 104 fL (82-100); MONOCYTES # (AUTO) 1.8 K/uL (0.1-1.30); MONOCYTES % (AUTO) 19.3 % (2.0-12.0); NEUTROPHILS # (AUTO) 5.6 K/uL (1.8-8.9); NEUTROPHILS % (AUTO) 58.7 % (43.0-81.0); PLATELET COUNT (AUTO) 282 K/uL (150-450); RED BLOOD CELL COUNT(AUTO) 2.49 MIL/uL (4.0-5.2); RED CELL DISTRIBUTION WIDTH 22.3 % (11.5-15.0); WHITE BLOOD COUNT (AUTO) 9.5 K/uL (4.3-11.0)
[2024-08-26 07:11] LABS: ALBUMIN 2.5 g/dL (3.4-5.0); BILIRUBIN,TOTAL 0.4 mg/dL (0.2-1.0); CALCIUM, SERUM 8.4 mg/dL (8.5-10.1); CREATININE 1.8 mg/dL (0.6-1.3); MAGNESIUM 1.9 mg/dL (1.8-2.4); PHOSPHORUS 3.4 mg/dL (2.5-4.9); POTASSIUM 3.3 mmol/L (3.5-5.1); TOTAL PROTEIN, SERUM 6.9 g/dL (6.4-8.2)
[2024-08-26 08:36] LABS: ANISOCYTOSIS 2+; EOSINOPHILS % (MANUAL) 1 % (0-4); LYMPHOCYTES % (MANUAL) 24 % (16-48); MONOCYTES % (MANUAL) 21 % (0-11.0); NEUTROPHILS % (MANUAL) 54 (42-76); PLATELET ESTIMATE ADEQUATE
[2024-08-26 08:37] LABS: STOMATOCYTES 1+
[2024-08-26] MEDS: ASPIRIN 81 MG TAB.CHEW GT SCH (09:10)
[2024-08-26] MEDS: DOCUSATE SODIUM LIQ 100 MG/10 ML UDC GT SCH (09:10)
[2024-08-26] MEDS: POTASSIUM CL. PREMIX PERIPHER. 50 ML IV SCH (10:42)
[2024-08-26 13:53] LABS: ABG BASE EXCESS 3.5 mmol/L (-2.0-3.0); ABG OXYGEN SATURATION 91.6 % (94.0-98.0); ABG PCO2 82.4 mmHg (32.0-45.0); ABG PH 7.214 (7.350-7.450); ABG PO2 70.6 mmHg (83.0-108.0); ABG TOTAL HEMOGLOBIN 8.6 G/dL (12.0-16.0); COHb 1.5 % (0.5-1.5); MetHb 0.2 % (0.0-1.5); SITE, ABG LEFT RADIAL
[2024-08-26] MEDS: ALBUTEROL HALF STRENGTH 1.25 MG/3 ML VIAL.NEB NEB SCH (14:00)
[2024-08-26] MEDS: IPRATROPIUM NEB FS 0.5 MG/2.5 ML AMPUL.NEB NEB SCH (14:00)
[2024-08-26] MEDS: methylPREDNISolone SOD SUCC 125 MG/2ML VIAL IV SCH (14:07)
[2024-08-26 17:11] LABS: ABG BASE EXCESS 3.8 mmol/L (-2.0-3.0); ABG OXYGEN SATURATION 93.9 % (94.0-98.0); ABG PH 7.228 (7.350-7.450); ABG PO2 79.1 mmHg (83.0-108.0); ABG TOTAL HEMOGLOBIN 8.8 G/dL (12.0-16.0); COHb 1.2 % (0.5-1.5); MetHb 0.4 % (0.0-1.5); O2Hb 92.4 % (94.0-97.0); SITE, ABG RIGHT RADIAL
[2024-08-26 20:32] LABS: ABG BASE EXCESS 1.7 mmol/L (-2.0-3.0); ABG OXYGEN SATURATION 95.5 % (94.0-98.0); ABG PCO2 69.7 mmHg (32.0-45.0); ABG PH 7.248 (7.350-7.450); ABG PO2 87.6 mmHg (83.0-108.0); ABG TOTAL HEMOGLOBIN 8.7 G/dL (12.0-16.0); COHb 1.2 % (0.5-1.5); MetHb 0.2 % (0.0-1.5); O2Hb 94.2 % (94.0-97.0); SITE, ABG LEFT RADIAL
[2024-08-27] VITALS (24 sets, daily range): BP systolic 107–149; BP diastolic 50–94; TEMP 97.7–99.1; O2SAT 88–100
[2024-08-27 05:02] LABS: BASOPHILS % (AUTO) 0.1 % (0.0-2.0); HEMATOCRIT 24 % (33-45); HEMOGLOBIN 7.3 g/dL (11.5-14.8); LYMPHOCYTES % (AUTO) 16.9 % (20.0-44.0); MEAN CORPUSCULAR HEMOGLOBIN 31 PG (26.0-33.0); MEAN CORPUSCULAR HGB CONC 30 g/dl (31.0-36.0); MEAN CORPUSCULAR VOLUME 105 fL (82-100); MONOCYTES # (AUTO) 0.3 K/uL (0.1-1.30); MONOCYTES % (AUTO) 4.3 % (2.0-12.0); NEUTROPHILS # (AUTO) 4.7 K/uL (1.8-8.9); NEUTROPHILS % (AUTO) 78.7 % (43.0-81.0); PLATELET COUNT (AUTO) 263 K/uL (150-450); RED BLOOD CELL COUNT(AUTO) 2.32 MIL/uL (4.0-5.2); RED CELL DISTRIBUTION WIDTH 21.6 % (11.5-15.0); WHITE BLOOD COUNT (AUTO) 5.9 K/uL (4.3-11.0)
[2024-08-27 05:38] LABS: ALBUMIN 2.2 g/dL (3.4-5.0); BILIRUBIN,TOTAL 0.4 mg/dL (0.2-1.0); CALCIUM, SERUM 8.8 mg/dL (8.5-10.1); CREATININE 2.2 mg/dL (0.6-1.3); PHOSPHORUS 3.2 mg/dL (2.5-4.9); POTASSIUM 3.3 mmol/L (3.5-5.1); TOTAL PROTEIN, SERUM 6.8 g/dL (6.4-8.2)
[2024-08-27] MEDS: FREE WATER VIA TUBE FEEDING GT SCH (08:51)
[2024-08-27] MEDS: POTASSIUM CL. PREMIX PERIPHER. 50 ML IV SCH (10:00)
[2024-08-27] MEDS: VANCOMYCIN POST DIALYSIS 500MG IV PRN (21:33)
[2024-08-27] MEDS: VANCOMYCIN 1 GM /D5W 250 ML PB IV ONE (22:30)
[2024-08-28] VITALS (26 sets, daily range): BP systolic 124–163; BP diastolic 70–113; TEMP 96.7–98.1; O2SAT 87–100
[2024-08-28 04:35] LABS: BASOPHILS % (AUTO) 0.1 % (0.0-2.0); HEMATOCRIT 24 % (33-45); HEMOGLOBIN 7.4 g/dL (11.5-14.8); LYMPHOCYTES % (AUTO) 10.5 % (20.0-44.0); MEAN CORPUSCULAR HEMOGLOBIN 31 PG (26.0-33.0); MEAN CORPUSCULAR HGB CONC 31 g/dl (31.0-36.0); MEAN CORPUSCULAR VOLUME 103 fL (82-100); MONOCYTES # (AUTO) 0.6 K/uL (0.1-1.30); MONOCYTES % (AUTO) 6.8 % (2.0-12.0); NEUTROPHILS # (AUTO) 7.7 K/uL (1.8-8.9); NEUTROPHILS % (AUTO) 82.6 % (43.0-81.0); PLATELET COUNT (AUTO) 310 K/uL (150-450); RED BLOOD CELL COUNT(AUTO) 2.37 MIL/uL (4.0-5.2); RED CELL DISTRIBUTION WIDTH 22.6 % (11.5-15.0); WHITE BLOOD COUNT (AUTO) 9.3 K/uL (4.3-11.0)
[2024-08-28 04:54] LABS: ALBUMIN 2.3 g/dL (3.4-5.0); BILIRUBIN,TOTAL 0.4 mg/dL (0.2-1.0); CALCIUM, SERUM 8.5 mg/dL (8.5-10.1); CREATININE 1.8 mg/dL (0.6-1.3); PHOSPHORUS 2.2 mg/dL (2.5-4.9); POTASSIUM 3.2 mmol/L (3.5-5.1); TOTAL PROTEIN, SERUM 6.9 g/dL (6.4-8.2)
[2024-08-28 06:20] LABS: ANISOCYTOSIS 2+; LYMPHOCYTES % (MANUAL) 8 % (16-48); MONOCYTES % (MANUAL) 7 % (0-11.0); NEUTROPHILS % (MANUAL) 85 (42-76); PLATELET ESTIMATE ADEQUATE
[2024-08-28 06:21] LABS: HYPOCHROMASIA 2+; STOMATOCYTES 1+; TARGET CELLS 2+
[2024-08-28] MEDS: RIFAXIMIN 550 MG TABLET GT SCH (10:24)
[2024-08-28] MEDS: POTASSIUM CHLORIDE 20 MEQ POWDER PACKET PO ONE (10:26)
[2024-08-28] MEDS: POTASSIUM CL. PREMIX PERIPHER. 50 ML IV SCH (10:27)
[2024-08-28] MEDS ORDERED: POTASSIUM CHLORIDE 20 MEQ POWDER PACKET PO ONE (10:30)
[2024-08-28] MEDS ORDERED: POTASSIUM CHLORIDE 10 MEQ TABLET.SA PO ONE (10:30)
[2024-08-28] MEDS ORDERED: POTASSIUM CHLORIDE 20 MEQ POWDER PACKET GT ONE (10:30)
[2024-08-28] MEDS: NEUTRA PHOS 1 POWD.PACKET PO ONE (17:01)
[2024-08-29] VITALS (30 sets, daily range): BP systolic 111–157; BP diastolic 62–107; TEMP 96.9–98; O2SAT 92–100
[2024-08-29 05:21] LABS: HEMATOCRIT 28 % (33-45); HEMOGLOBIN 8.5 g/dL (11.5-14.8); LYMPHOCYTES # (AUTO) 1.2 K/uL (0.8-4.8); LYMPHOCYTES % (AUTO) 12.7 % (20.0-44.0); MEAN CORPUSCULAR HEMOGLOBIN 32 PG (26.0-33.0); MEAN CORPUSCULAR HGB CONC 30 g/dl (31.0-36.0); MEAN CORPUSCULAR VOLUME 105 fL (82-100); MONOCYTES # (AUTO) 1.4 K/uL (0.1-1.30); MONOCYTES % (AUTO) 14.6 % (2.0-12.0); NEUTROPHILS % (AUTO) 72.7 % (43.0-81.0); PLATELET COUNT (AUTO) 300 K/uL (150-450); RED BLOOD CELL COUNT(AUTO) 2.69 MIL/uL (4.0-5.2); RED CELL DISTRIBUTION WIDTH 22.8 % (11.5-15.0); WHITE BLOOD COUNT (AUTO) 9.7 K/uL (4.3-11.0)
[2024-08-29 05:39] LABS: ALBUMIN 2.4 g/dL (3.4-5.0); BILIRUBIN,TOTAL 0.4 mg/dL (0.2-1.0); CALCIUM, SERUM 8.5 mg/dL (8.5-10.1); CREATININE 1.5 mg/dL (0.6-1.3); MAGNESIUM 2.2 mg/dL (1.8-2.4); PHOSPHORUS 2.6 mg/dL (2.5-4.9); POTASSIUM 3.8 mmol/L (3.5-5.1); TOTAL PROTEIN, SERUM 7.3 g/dL (6.4-8.2)
[2024-08-29 06:32] LABS: ANISOCYTOSIS 1+; BASOPHILS % (MANUAL) 0 % (0.0-2.0); EOSINOPHILS % (MANUAL) 0 % (0-4); LYMPHOCYTES % (MANUAL) 10 % (16-48); MONOCYTES % (MANUAL) 16 % (0-11.0); NEUTROPHILS % (MANUAL) 74 (42-76); PLATELET ESTIMATE ADEQUATE; STOMATOCYTES 1+; TARGET CELLS 1+
[2024-08-29 10:46] LABS: ABG BASE EXCESS 1.1 mmol/L (-2.0-3.0); ABG OXYGEN SATURATION 35.7 % (94.0-98.0); ABG PCO2 54.5 mmHg (32.0-45.0); ABG PH 7.322 (7.350-7.450); ABG PO2 24.4 mmHg (83.0-108.0); ABG TOTAL HEMOGLOBIN 8.4 G/dL (12.0-16.0); COHb 0.3 % (0.5-1.5); MetHb 0.8 % (0.0-1.5); O2Hb 35.3 % (94.0-97.0); SITE, ABG RIGHT RADIAL
[2024-08-29 14:58] LABS: CALCIUM, SERUM 8.7 mg/dL (8.5-10.1); CREATININE 1.7 mg/dL (0.6-1.3); POTASSIUM 4.1 mmol/L (3.5-5.1)
[2024-08-30] VITALS (21 sets, daily range): BP systolic 112–149; BP diastolic 64–92; TEMP 97–98; O2SAT 96–100
[2024-08-30 05:22] LABS: EOSINOPHILS % (AUTO) 0.1 % (0.0-6.0); HEMATOCRIT 24 % (33-45); HEMOGLOBIN 7.3 g/dL (11.5-14.8); LYMPHOCYTES # (AUTO) 0.4 K/uL (0.8-4.8); LYMPHOCYTES % (AUTO) 5.4 % (20.0-44.0); MEAN CORPUSCULAR HEMOGLOBIN 32 PG (26.0-33.0); MEAN CORPUSCULAR HGB CONC 31 g/dl (31.0-36.0); MEAN CORPUSCULAR VOLUME 103 fL (82-100); MONOCYTES # (AUTO) 0.3 K/uL (0.1-1.30); MONOCYTES % (AUTO) 3.4 % (2.0-12.0); NEUTROPHILS % (AUTO) 91.1 % (43.0-81.0); PLATELET COUNT (AUTO) 315 K/uL (150-450); RED BLOOD CELL COUNT(AUTO) 2.32 MIL/uL (4.0-5.2); WHITE BLOOD COUNT (AUTO) 7.7 K/uL (4.3-11.0)
[2024-08-30 05:36] LABS: ALBUMIN 2.1 g/dL (3.4-5.0); BILIRUBIN,TOTAL 0.3 mg/dL (0.2-1.0); CALCIUM, SERUM 8.3 mg/dL (8.5-10.1); CREATININE 1.8 mg/dL (0.6-1.3); PHOSPHORUS 3.1 mg/dL (2.5-4.9); POTASSIUM 3.4 mmol/L (3.5-5.1); TOTAL PROTEIN, SERUM 6.3 g/dL (6.4-8.2)
[2024-08-30] MEDS: RIFAXIMIN 550 MG TABLET GT SCH (09:04)
[2024-08-30] MEDS: methylPREDNISolone SOD SUCC 125 MG/2ML VIAL IV SCH (09:04)
[2024-08-30] MEDS ORDERED: POTASSIUM CL. PREMIX PERIPHER. 50 ML IV SCH ×2 (10:30→11:00)
[2024-08-30] MEDS: POTASSIUM CL. PREMIX PERIPHER. 50 ML IV SCH (10:37)
[2024-08-30] MEDS: LACTULOSE 10 G/15 ML UDC (PYXIS) GT SCH (14:32)
[2024-08-30] MEDS: POTASSIUM CHLORIDE 20 MEQ POWDER PACKET GT SCH (14:34)
[2024-08-31] VITALS (17 sets, daily range): BP systolic 108–135; BP diastolic 55–92; TEMP 96.2–98.1; O2SAT 96–100
[2024-08-31 06:44] LABS: BASOPHILS % (AUTO) 0.4 % (0.0-2.0); HEMATOCRIT 28 % (33-45); HEMOGLOBIN 8.3 g/dL (11.5-14.8); LYMPHOCYTES # (AUTO) 0.6 K/uL (0.8-4.8); LYMPHOCYTES % (AUTO) 6.7 % (20.0-44.0); MEAN CORPUSCULAR HEMOGLOBIN 32 PG (26.0-33.0); MEAN CORPUSCULAR HGB CONC 30 g/dl (31.0-36.0); MEAN CORPUSCULAR VOLUME 105 fL (82-100); MONOCYTES # (AUTO) 0.5 K/uL (0.1-1.30); MONOCYTES % (AUTO) 5.4 % (2.0-12.0); NEUTROPHILS % (AUTO) 87.5 % (43.0-81.0); PLATELET COUNT (AUTO) 292 K/uL (150-450); RED BLOOD CELL COUNT(AUTO) 2.63 MIL/uL (4.0-5.2); RED CELL DISTRIBUTION WIDTH 23.4 % (11.5-15.0); WHITE BLOOD COUNT (AUTO) 9.2 K/uL (4.3-11.0)
[2024-08-31 07:06] LABS: CALCIUM, SERUM 8.8 mg/dL (8.5-10.1); CREATININE 1.7 mg/dL (0.6-1.3); PHOSPHORUS 2.8 mg/dL (2.5-4.9); POTASSIUM 4.7 mmol/L (3.5-5.1)
[2024-09-01] VITALS (14 sets, daily range): BP systolic 121–138; BP diastolic 68–97; TEMP 97.3–97.9; O2SAT 94–100
[2024-09-01 06:50] LABS: HEMATOCRIT 27 % (33-45); LYMPHOCYTES # (AUTO) 0.6 K/uL (0.8-4.8); LYMPHOCYTES % (AUTO) 4.9 % (20.0-44.0); MEAN CORPUSCULAR HEMOGLOBIN 31 PG (26.0-33.0); MEAN CORPUSCULAR HGB CONC 30 g/dl (31.0-36.0); MEAN CORPUSCULAR VOLUME 104 fL (82-100); MONOCYTES # (AUTO) 0.5 K/uL (0.1-1.30); MONOCYTES % (AUTO) 4.8 % (2.0-12.0); NEUTROPHILS # (AUTO) 10.3 K/uL (1.8-8.9); NEUTROPHILS % (AUTO) 90.3 % (43.0-81.0); PLATELET COUNT (AUTO) 318 K/uL (150-450); RED BLOOD CELL COUNT(AUTO) 2.57 MIL/uL (4.0-5.2); RED CELL DISTRIBUTION WIDTH 23.4 % (11.5-15.0); WHITE BLOOD COUNT (AUTO) 11.5 K/uL (4.3-11.0)
[2024-09-01 07:03] LABS: CALCIUM, SERUM 8.8 mg/dL (8.5-10.1); CREATININE 1.8 mg/dL (0.6-1.3); MAGNESIUM 2.2 mg/dL (1.8-2.4); PHOSPHORUS 3.1 mg/dL (2.5-4.9); POTASSIUM 5.3 mmol/L (3.5-5.1)
[2024-09-01 09:47] LABS: ABG BASE EXCESS -0.8 mmol/L (-2.0-3.0); ABG OXYGEN SATURATION 96.5 % (94.0-98.0); ABG PCO2 40.8 mmHg (32.0-45.0); ABG PH 7.389 (7.350-7.450); ABG PO2 84.9 mmHg (83.0-108.0); ABG TOTAL HEMOGLOBIN 8.3 G/dL (12.0-16.0); COHb 1.4 % (0.5-1.5); MetHb 0.3 % (0.0-1.5); O2Hb 94.9 % (94.0-97.0); SITE, ABG LEFT RADIAL
[2024-09-01] MEDS: ALBUMIN 25% 12.5 GM/50 ML BOTTLE IV ONE (11:30)
[2024-09-01] MEDS ORDERED: ALBUMIN 5% 25 GM in PREMIX 1 EA IV ONE (12:00)
[2024-09-01] MEDS ORDERED: ALBUMIN 25% 12.5 GM in PREMIX 1 EA IV ONE (12:00)
[2024-09-01] MEDS ORDERED: ALBUMIN 25% 12.5 GM/50 ML BOTTLE IV ONE (12:00)
[2024-09-01 12:12] LABS: INR 1.14 (0.91-1.10)
[2024-09-01] MEDS ORDERED: LIDOCAINE 1% INJ 50 ML MDV IJ ONE (14:12)
[2024-09-01] MEDS ORDERED: BUPIVACAINE MPF 0.5% W/EPI INJ 30 ML VIAL ONE (14:12)
[2024-09-01 17:07] LABS: CALCIUM, SERUM 8.6 mg/dL (8.5-10.1); CREATININE 1.7 mg/dL (0.6-1.3)
[2024-09-01] MEDS: ALBUMIN 25% 25 GM in PREMIX 1 EA IV ONE (19:34)
[2024-09-02] VITALS (9 sets, daily range): BP systolic 124–153; BP diastolic 63–81; TEMP 97.9–99; O2SAT 96–100
[2024-09-02 07:16] LABS: EOSINOPHILS % (AUTO) 0.1 % (0.0-6.0); HEMATOCRIT 25 % (33-45); HEMOGLOBIN 7.8 g/dL (11.5-14.8); LYMPHOCYTES # (AUTO) 1.4 K/uL (0.8-4.8); LYMPHOCYTES % (AUTO) 9.5 % (20.0-44.0); MEAN CORPUSCULAR HEMOGLOBIN 32 PG (26.0-33.0); MEAN CORPUSCULAR HGB CONC 31 g/dl (31.0-36.0); MEAN CORPUSCULAR VOLUME 103 fL (82-100); MONOCYTES # (AUTO) 1.6 K/uL (0.1-1.30); MONOCYTES % (AUTO) 10.3 % (2.0-12.0); NEUTROPHILS # (AUTO) 12.1 K/uL (1.8-8.9); NEUTROPHILS % (AUTO) 80.1 % (43.0-81.0); PLATELET COUNT (AUTO) 294 K/uL (150-450); RED BLOOD CELL COUNT(AUTO) 2.47 MIL/uL (4.0-5.2); RED CELL DISTRIBUTION WIDTH 23.3 % (11.5-15.0); WHITE BLOOD COUNT (AUTO) 15.2 K/uL (4.3-11.0)
[2024-09-02 07:17] LABS: CALCIUM, SERUM 8.6 mg/dL (8.5-10.1); CREATININE 1.1 mg/dL (0.6-1.3); MAGNESIUM 1.9 mg/dL (1.8-2.4); PHOSPHORUS 2.1 mg/dL (2.5-4.9)
[2024-09-02] MEDS: methylPREDNISolone SOD SUCC 125 MG/2ML VIAL IV SCH (09:23)
[2024-09-02] MEDS: NEUTRA PHOS 1 POWD.PACKET GT ONE (15:50)
[2024-09-03] VITALS (12 sets, daily range): BP systolic 63–136; BP diastolic 64–72; TEMP 97.2–98.8; O2SAT 97–100
[2024-09-03 08:02] LABS: BASOPHILS % (AUTO) 0.1 % (0.0-2.0); EOSINOPHILS % (AUTO) 0.1 % (0.0-6.0); HEMATOCRIT 28 % (33-45); HEMOGLOBIN 8.3 g/dL (11.5-14.8); LYMPHOCYTES # (AUTO) 1.6 K/uL (0.8-4.8); LYMPHOCYTES % (AUTO) 10.6 % (20.0-44.0); MEAN CORPUSCULAR HEMOGLOBIN 31 PG (26.0-33.0); MEAN CORPUSCULAR HGB CONC 30 g/dl (31.0-36.0); MEAN CORPUSCULAR VOLUME 103 fL (82-100); MONOCYTES # (AUTO) 1.4 K/uL (0.1-1.30); MONOCYTES % (AUTO) 8.8 % (2.0-12.0); NEUTROPHILS # (AUTO) 12.4 K/uL (1.8-8.9); NEUTROPHILS % (AUTO) 80.4 % (43.0-81.0); PLATELET COUNT (AUTO) 317 K/uL (150-450); RED BLOOD CELL COUNT(AUTO) 2.68 MIL/uL (4.0-5.2); RED CELL DISTRIBUTION WIDTH 23.2 % (11.5-15.0); WHITE BLOOD COUNT (AUTO) 15.4 K/uL (4.3-11.0)
[2024-09-03 08:23] LABS: MAGNESIUM 2.1 mg/dL (1.8-2.4); PHOSPHORUS 3.8 mg/dL (2.5-4.9)
[2024-09-03 10:54] LABS: CALCIUM, SERUM 8.7 mg/dL (8.5-10.1); CREATININE 1.4 mg/dL (0.6-1.3); POTASSIUM 4.5 mmol/L (3.5-5.1)
[2024-09-03 11:10] LABS: ANISOCYTOSIS 1+; HYPOCHROMASIA 2+; LYMPHOCYTES % (MANUAL) 10 % (16-48); MONOCYTES % (MANUAL) 10 % (0-11.0); NEUTROPHILS % (MANUAL) 80 (42-76); PLATELET ESTIMATE ADEQUATE; STOMATOCYTES 1+
[2024-09-04] VITALS (12 sets, daily range): BP systolic 118–138; BP diastolic 58–77; TEMP 97.5–98.2; O2SAT 94–100
[2024-09-04 08:50] LABS: BASOPHILS % (AUTO) 0.1 % (0.0-2.0); EOSINOPHILS # (AUTO) 0.2 K/uL (0.0-0.7); EOSINOPHILS % (AUTO) 1.1 % (0.0-6.0); HEMATOCRIT 27 % (33-45); HEMOGLOBIN 8.2 g/dL (11.5-14.8); LYMPHOCYTES # (AUTO) 1.8 K/uL (0.8-4.8); LYMPHOCYTES % (AUTO) 12.2 % (20.0-44.0); MEAN CORPUSCULAR HEMOGLOBIN 31 PG (26.0-33.0); MEAN CORPUSCULAR HGB CONC 30 g/dl (31.0-36.0); MEAN CORPUSCULAR VOLUME 105 fL (82-100); MONOCYTES % (AUTO) 6.7 % (2.0-12.0); NEUTROPHILS # (AUTO) 11.9 K/uL (1.8-8.9); NEUTROPHILS % (AUTO) 79.9 % (43.0-81.0); PLATELET COUNT (AUTO) 292 K/uL (150-450); RED BLOOD CELL COUNT(AUTO) 2.61 MIL/uL (4.0-5.2); RED CELL DISTRIBUTION WIDTH 23.1 % (11.5-15.0); WHITE BLOOD COUNT (AUTO) 14.9 K/uL (4.3-11.0)
[2024-09-04 09:34] LABS: MAGNESIUM 2.1 mg/dL (1.8-2.4); PHOSPHORUS 3.7 mg/dL (2.5-4.9)
[2024-09-04 09:42] LABS: CALCIUM, SERUM 8.8 mg/dL (8.5-10.1); CREATININE 1.3 mg/dL (0.6-1.3); POTASSIUM 4.1 mmol/L (3.5-5.1)
[2024-09-04 11:13] LABS: EOSINOPHILS % (MANUAL) 1 % (0-4); LYMPHOCYTES % (MANUAL) 14 % (16-48); MONOCYTES % (MANUAL) 5 % (0-11.0); NEUTROPHILS % (MANUAL) 80 (42-76)
[2024-09-04 11:14] LABS: PLATELET ESTIMATE ADEQUATE
[2024-09-04 11:15] LABS: ANISOCYTOSIS 1+; HYPOCHROMASIA 1+
[2024-09-05] VITALS (11 sets, daily range): BP systolic 111–134; BP diastolic 49–92; TEMP 97.5–98.2; O2SAT 94–100
[2024-09-05 07:18] LABS: MAGNESIUM 1.9 mg/dL (1.8-2.4); PHOSPHORUS 3.5 mg/dL (2.5-4.9)
[2024-09-05 07:30] LABS: BASOPHILS % (AUTO) 0.1 % (0.0-2.0); EOSINOPHILS # (AUTO) 0.2 K/uL (0.0-0.7); EOSINOPHILS % (AUTO) 1.2 % (0.0-6.0); HEMATOCRIT 27 % (33-45); HEMOGLOBIN 8.1 g/dL (11.5-14.8); LYMPHOCYTES # (AUTO) 1.9 K/uL (0.8-4.8); MEAN CORPUSCULAR HEMOGLOBIN 32 PG (26.0-33.0); MEAN CORPUSCULAR HGB CONC 30 g/dl (31.0-36.0); MEAN CORPUSCULAR VOLUME 105 fL (82-100); MONOCYTES # (AUTO) 0.9 K/uL (0.1-1.30); MONOCYTES % (AUTO) 6.2 % (2.0-12.0); NEUTROPHILS # (AUTO) 11.5 K/uL (1.8-8.9); NEUTROPHILS % (AUTO) 79.5 % (43.0-81.0); PLATELET COUNT (AUTO) 269 K/uL (150-450); RED BLOOD CELL COUNT(AUTO) 2.58 MIL/uL (4.0-5.2); RED CELL DISTRIBUTION WIDTH 23.1 % (11.5-15.0); WHITE BLOOD COUNT (AUTO) 14.4 K/uL (4.3-11.0)
[2024-09-05] MEDS: FUROSEMIDE 40 MG/4 ML VIAL IV SCH (08:39)
[2024-09-05 08:54] LABS: CALCIUM, SERUM 8.4 mg/dL (8.5-10.1); CREATININE 1.3 mg/dL (0.6-1.3); POTASSIUM 4.3 mmol/L (3.5-5.1)
[2024-09-05] MEDS ORDERED: SODI473S8 TOP (13:42)
[2024-09-05] MEDS ORDERED: ACET650S26 GT (13:42)
[2024-09-05] MEDS ORDERED: CEFE1FRO IV (13:42)
[2024-09-05] MEDS ORDERED: ALBU1.25 NEB (13:42)
[2024-09-05] MEDS ORDERED: SODI5POW2 PO (13:45)
[2024-09-05] MEDS: ENSURE ENLIVE CHOC 237 ML CAN PO SCH (15:25)
[2024-09-06] VITALS (7 sets, daily range): BP systolic 110–139; BP diastolic 56–71; TEMP 97.6–98.4; O2SAT 92–100
[2024-09-06 06:40] LABS: BASOPHILS % (AUTO) 0.1 % (0.0-2.0); EOSINOPHILS # (AUTO) 0.2 K/uL (0.0-0.7); EOSINOPHILS % (AUTO) 1.1 % (0.0-6.0); HEMATOCRIT 25 % (33-45); HEMOGLOBIN 7.4 g/dL (11.5-14.8); LYMPHOCYTES # (AUTO) 1.6 K/uL (0.8-4.8); LYMPHOCYTES % (AUTO) 11.3 % (20.0-44.0); MEAN CORPUSCULAR HEMOGLOBIN 31 PG (26.0-33.0); MEAN CORPUSCULAR HGB CONC 30 g/dl (31.0-36.0); MEAN CORPUSCULAR VOLUME 105 fL (82-100); MONOCYTES # (AUTO) 0.9 K/uL (0.1-1.30); MONOCYTES % (AUTO) 6.3 % (2.0-12.0); NEUTROPHILS # (AUTO) 11.6 K/uL (1.8-8.9); NEUTROPHILS % (AUTO) 81.2 % (43.0-81.0); PLATELET COUNT (AUTO) 252 K/uL (150-450); RED BLOOD CELL COUNT(AUTO) 2.35 MIL/uL (4.0-5.2); RED CELL DISTRIBUTION WIDTH 22.7 % (11.5-15.0); WHITE BLOOD COUNT (AUTO) 14.3 K/uL (4.3-11.0)
[2024-09-06 07:12] LABS: MAGNESIUM 1.9 mg/dL (1.8-2.4); PHOSPHORUS 3.2 mg/dL (2.5-4.9)
== END 2024-09-06 17:25 | DRG 981 ==
LOC: ER 12:17 → MED 13:53 → TELE 08-21 09:30 → ICU 08-23 01:18 → TELE1 08-25 19:31 → TELE-TD 08-25 19:55 → TELE1 08-26 10:09 → ICU 08-26 15:27 → ICUOV 08-30 17:49 → TELE-TD 08-31 07:57 → TELE1 09-01 10:07 → MEDSG1 09-05 10:13
PROVIDERS: ADMIT Nurse Practitioner Acute Care; ATTEND Nurse Practitioner Acute Care
PROC: 30233N1 Transfusion of Nonautologous Red Blood Cells into Peripheral Vein, Percutaneous Approach (ICD-10-PCS; principal; 2024-08-21)
PROC: 5A09457 Assistance with Respiratory Ventilation, 24-96 Consecutive Hours, Continuous Positive Airway Pressure (ICD-10-PCS; 2024-08-23)
PROC: 5A1D70Z Performance of Urinary Filtration, Intermittent, Less than 6 Hours Per Day (ICD-10-PCS; 2024-08-23)
PROC: 0KBN0ZZ Excision of Right Hip Muscle, Open Approach (ICD-10-PCS; 2024-08-24)
PROC: 0KBP0ZZ Excision of Left Hip Muscle, Open Approach (ICD-10-PCS; 2024-08-24)
PROC: 06HY33Z Insertion of Infusion Device into Lower Vein, Percutaneous Approach (ICD-10-PCS; 2024-08-24)
PROC: 5A09557 Assistance with Respiratory Ventilation, Greater than 96 Consecutive Hours, Continuous Positive Airway Pressure (ICD-10-PCS; 2024-08-25)
PROC: 0DJ08ZZ Inspection of Upper Intestinal Tract, Via Natural or Artificial Opening Endoscopic (ICD-10-PCS; 2024-08-29)
PROC: 0KBP0ZZ Excision of Left Hip Muscle, Open Approach (ICD-10-PCS; 2024-08-30)
PROC: 0KBN0ZZ Excision of Right Hip Muscle, Open Approach (ICD-10-PCS; 2024-08-30)
PROC: 0W9G3ZX Drainage of Peritoneal Cavity, Percutaneous Approach, Diagnostic (ICD-10-PCS; 2024-09-01)
PROC: 0W9G3ZX Drainage of Peritoneal Cavity, Percutaneous Approach, Diagnostic (ICD-10-PCS; 2024-09-02)
DX: K74.60 Unspecified cirrhosis of liver (principal); G93.41 Metabolic encephalopathy; I50.33 Acute on chronic diastolic (congestive) heart failure; L89.154 Pressure ulcer of sacral region, stage 4; J96.21 Acute and chronic respiratory failure with hypoxia; J96.22 Acute and chronic respiratory failure with hypercapnia; I13.0 Hypertensive heart and chronic kidney disease with heart failure and stage 1 through stage 4 chronic kidney disease, or unspecified chronic kidney disease; N39.0 Urinary tract infection, site not specified; N17.9 Acute kidney failure, unspecified; D68.59 Other primary thrombophilia; E87.20 Acidosis, unspecified; I48.92 Unspecified atrial flutter; R18.8 Other ascites; E66.2 Morbid (severe) obesity with alveolar hypoventilation; E87.1 Hypo-osmolality and hyponatremia; R62.7 Adult failure to thrive; N18.9 Chronic kidney disease, unspecified; K29.70 Gastritis, unspecified, without bleeding; E11.22 Type 2 diabetes mellitus with diabetic chronic kidney disease; Z86.73 Personal history of transient ischemic attack (TIA), and cerebral infarction without residual deficits; Z79.899 Other long term (current) drug therapy; D63.8 Anemia in other chronic diseases classified elsewhere; Z79.51 Long term (current) use of inhaled steroids; Z79.82 Long term (current) use of aspirin; J44.9 Chronic obstructive pulmonary disease, unspecified; F03.90 Unspecified dementia, unspecified severity, without behavioral disturbance, psychotic disturbance, mood disturbance, and anxiety; H40.9 Unspecified glaucoma; I48.91 Unspecified atrial fibrillation; R13.10 Dysphagia, unspecified; E88.09 Other disorders of plasma-protein metabolism, not elsewhere classified; E87.6 Hypokalemia; I25.10 Atherosclerotic heart disease of native coronary artery without angina pectoris; Z53.20 Procedure and treatment not carried out because of patient's decision for unspecified reasons; E87.5 Hyperkalemia; Z86.61 Personal history of infections of the central nervous system
CPT/HCPCS: 36415; 36600; 43246; 49083; 71045-TC; 74018; 76770-TC; 80048-TC; 80053-TC; 80061-TC; 80076-TC; 80202-TC; 81001; 82140-TC; 82550-TC; 82728-TC; 82803-TC; 82962-TC; 83540-TC; 83605-TC; 83735-TC; 83970; 84100-TC; 84155; 84165; 84439-TC; 84443-TC; 85025-TC; 85730-TC; 86704; 86705; 86706; 86803; 86850-TC; 87040-TC; 87081-TC; 87340; 90935-TC; 92526; 92611-TC; 94660; 94760-TC; 94761-TC; 94799-TC; 97110-TC; A4216; A4217; A4223; A6253; A6403; G0378; J0692; J1160; J1815; J1940; J2405; J2704; J2919; J3370; J3371; J3480; J3490; J7030; J7040; J7042; J7050; J7060; J7120; P9016; P9045; P9047